=== PATIENT | female | born 1945 | race Caucasian/White ===

== ENCOUNTER 2017-07-01 16:51 | Emergency (ER) | payer MEDICARE, OTHER, SELFPAY ==
[2017-07-01 16:56] VITALS: BP 129/69; PULSE 74; RESP 16; TEMP 36.8; O2SAT 97; BMI 20.9
--- NOTE | 2017-07-01 17:06 | HMH.EDGENADL ---
ED Disposition Clinical Impression: Viral illness Disposition: Home, Self-Care Condition on Discharge: Good Additional Instructions: Tylenol or ibuprofen for aches and pain. Rest and plenty of fluids. Additional instructions for UPPER RESPIRATORY INFECTION: See your physician as soon as possible for further evaluation. Return immediately if you have an uncontrollable fever greater than 104 degrees, difficulty breathing or shortness of breath, persistent vomiting, or inability to swallow. Referrals: Dami Schumacher MD [Primary Care Provider] - - Critical Care Critical Care Time: No Attestation: On , the high probability of a clinically significant, sudden or life threatening deterioration of the following system(s) required my full and direct attention, intervention and personal management. The time I documented below is in addition to time spent performing reported procedures but includes the following listed in this critical care notation. Medical Decision Making Vital Signs: 07/01/17 16:56 Temperature 98.2 F Temperature Source Oral Pulse Rate [Right Radial] 74 Respiratory Rate 16 Blood Pressure [Right Arm] 129/69 Blood Pressure Mean [Right Arm] 89 02 Sat by Pulse Oximetry 97 - Lab Data Lab Results 07/01/17 17:10: Influenza Type A Ag Negative, Influenza Type B Ag Negative Orders (Tests/Meds): ORDERS Category Date Time Status 12-lead EKG Request [ECG Request by /Allison] Stat Y 07/01/17 17:22 Ordered - ECG Data Tracing #1 EKG interpreted by Ashok Rosario MD: Rhythm: sinus Rate: 70 [place]: normal Ectopy: none Conduction: normal ST Segment Changes: none T Wave Changes: none Q Waves: none No evidence of acute ischemia or injury Normal electrocardiogram - Ankit Inquiry Pt receiving controlled substance: No General Adult HPI - General Stated complaint: Body aches, conjestion, mouth blisters - History of Present Illness HPI narrative: The patient says that she felt fine when she woke up this morning and she left the house at one, but sometime thereafter she began feeling generalized body aches particularly her legs and back and a sense of fatigue. She has some painful sores on the roof of her mouth. Denies cough but feels slightly winded. She has chronic rhinorrhea, unchanged today. No vomiting or diarrhea. No chest pain. She says she had the flu April 24, treated with Tamiflu. - Related Data Home Medications Medication Instructions Recorded Confirmed Aspirin [Aspir 81] 81 mg PO HS 03/09/18 03/09/18 Bisoprolol Fumarate [Zebeta 5mg 0 mg PO HS 07/01/17 07/01/17 tablet] Levothyroxine Sodium 50 mcg PO DAILY 07/01/17 07/01/17 [Levothyroxine 25mcg (0.025mg) Tab] PHENobarbital [Phenobarbital] 30 mg PO HS 07/01/17 07/01/17 Phenytoin Sodium Extended 125 mg PO HS 07/01/17 07/01/17 [Dilantin 100mg Capsule] Ubidecarenone [Co Q-10] 100 mg PO DAILY 07/01/17 07/01/17 Allergies Allergy/AdvReac Type Severity Reaction Status Date / Time butorphanol [BUTORPHANOL] Allergy Severe ANAPHALTIC Verified 07/01/17 17:09 SHOCK iopamidol [IOPAMIDOL] Allergy Severe ANAPHYLAXIS Verified 07/01/17 17:09 penicillin V [From PEN-VEE K] Allergy Mild THRUSH Verified 07/01/17 17:09 diphenhydramine Allergy Unknown Verified 07/01/17 17:09 [From BENADRYL] iopanoic acid [IOPANOIC ACID] Allergy Unknown Verified 07/01/17 17:09 [facility] History I have reviewed the patient's past medical history: Yes ROS Obtained: Yes All systems reviewed & no additional complaints - Constitutional Constitutional: Reports body ache, Denies fever(s), Reports malaise - ENT Ears, Nose, Mouth, and Throat: Reports as per HPI - Cardiovascular Cardiovascular: Denies chest pain - Respiratory Respiratory: No cough Physical Exam - General General appearance: alert, in no apparent distress - Head Head exam: atraumatic, normocephalic, normal inspection - Eye Ey
[2017-07-01 17:45] VITALS: BP 129/69; PULSE 74; RESP 16; TEMP 36.8; O2SAT 97
== END 2017-07-01 17:50 | disposition home or self-care (01) ==
PROVIDERS: Emergency Provider Emergency Medicine; PCP Family Medicine
DX: B34.9 Viral infection, unspecified (principal); S00.522A Blister (nonthermal) of oral cavity, initial encounter; Z79.82 Long term (current) use of aspirin; Z88.0 Allergy status to penicillin; Z88.8 Allergy status to other drugs, medicaments and biological substances
CPT/HCPCS: 87275; 87276; 93005; 99282

== ENCOUNTER → 2018-02-10 13:21 | Outpatient (CLI) | payer MEDICARE, OTHER, SELFPAY ==
--- NOTE | 2018-02-10 13:26 | CA_ITS ---
PROCEDURE: 2-D M-mode and color Doppler study INDICATIONS FOR THE TEST: Chest painX COPD Heart Murmur Tobacco Smoking PalpitationsX Fatigue Syncope EdemaX Hypertension Diabetes Mellitus Rheumatic Fever SOBXDOE Obesity Hyperlipidemia Family History HD Additional History AF PATIENT INFORMATION HEIGHT: 63 WEIGHT:121 GENDER: Female B/P:132/66 2-D/M-MODE INTERPRETATION: 2-D MEASUREMENTS OBSERVED VALUES IN CMS Right Ventricular Dimension (RVDd) 1.4 Interventricular Septum (Thickness)(IVsd) .9 Left Ventricular Internal Dimensions(LVIDd) 5.0 Left Ventricular Posterior Wall (Thickness)(LVPWd) .8 Aortic Root 2.9 Aortic Cusp Separation 1.6 Left Atrial Dimensions (LAD) 2.6 2D 1. Left atrium is mildly enlarged, left ventricle is normal size, mild concentric left ventricular hypertrophy, visually estimated ejection fraction 55% with no obvious regional wall motion abnormality. 2. The right atrium and right ventricle are normal size and contractility. 3. The aortic valve is minimally thickened and fibrosed. 4. The mitral and tricuspid valvular grossly normal. 5. The pulmonic valve is poorly visualized. 6. No significant pericardial effusion noted. DOPPLER INTERROGATION: Doppler interrogation of the aortic, mitral and tricuspid valvular presence of mild mitral and tricuspid regurgitation, tricuspid regurgitation jet velocity is inadequate for calculation of the right ventricular systolic pressure, diastolic parameters are inconclusive. CONCLUSION: 1. Normal left ventricular size, preserved left ventricular systolic function, visually estimated ejection fraction 55% with no regional wall motion abnormality, diastolic parameters are inconclusive. 2. Mild mitral and tricuspid regurgitation 3. No significant pericardial effusion noted.
== END ==
PROVIDERS: PCP Family Medicine; Visit Provider Internal Medicine
DX: R00.2 Palpitations (principal)
CPT/HCPCS: 93306

== ENCOUNTER → 2018-03-28 12:38 | Outpatient (POV) | payer MEDICARE, SELFPAY | PROVIDERS: Visit Provider Dermatology | DX: Z00.00 Encounter for general adult medical examination without abnormal findings (principal) ==

== ENCOUNTER → 2018-04-11 09:58 | Outpatient (CLI) | payer MEDICARE, OTHER, SELFPAY ==
--- NOTE | 2018-04-11 10:08 | XR_ITS ---
XR knee LT 3V Ordering Physician: Dami Schumacher MD Patient Age: 73 years: Female HISTORY: ITS.REASON: LEFT KNEE PAIN, TECHNIQUE: 3 view nonweightbearing left knee COMPARISON :None none FINDINGS . Osteophytic changes at the left knee most pronounced at the medial compartment. There is prominent joint space narrowing at the medial compartment. On this nonweightbearing film the medial joint space narrows to less than 1. 5 - 2 mm height. Mild sclerosis about the tibial plateau and medial compartment reflecting reactive bone change. The Tricompartmental marginal osteophytes most pronounced about medial compartment.. The lateral compartment remains well maintained. Faint chondrocalcinosis seen at both the medial and lateral compartment. Most likely on the basis of degenerative change but can be seen with other conditions, including CPPD/ pseudogout . There is a small joint effusionAt suprapatellar bursa seen on lateral view. The patella appears satisfactory on current images. Mild diffuse demineralization. IMPRESSION---- Osteoarthritis left knee most pronounced at the medial compartment . Marked joint space narrowing, with sclerosis and marginal osteophytes most evident at medial compartment. Faint chondrocalcinosis both medial & lateral compartment. More likely degenerative in nature Small joint effusion
[2018-04-11 10:44] LABS: Basophils % 0.7 % (0.1-2.0); Eosinophils # 0.1 K/mm3 (0.0-0.4); Eosinophils % 1.8 % (0.1-12.0); Hematocrit 37.4 % (37.0-47.0); Hemoglobin 12.1 g/dL (12.2-16.2); Lymphocytes # 2.1 K/mm3 (0.7-4.5); Lymphocytes % 32.4 % (10-50); Mean Corpuscular HGB Conc 32.4 g/dL (31.8-35.4); Mean Corpuscular Hemoglobin 30.1 pg (27.0-31.2); Mean Corpuscular Volume 92.9 fl (81-99); Mean Platelet Volume 7.2 fl (7.4-10.4); Monocytes # 0.4 K/mm3 (0.1-1.0); Monocytes % 6.2 % (1.7-9.3); Neutrophils # 3.8 K/mm3 (1.8-7.8); Neutrophils % 58.8 % (37.0-80.0); Platelet Count 274 K/mm3 (142-424); Red Blood Count 4.03 M/mm3 (4.20-5.40); Red Cell Distribution Width 13.4 % (11.5-17.5); White Blood Count 6.4 K/mm3 (4.8-10.8)
[2018-04-11 11:36] LABS: Alanine Aminotransferase 24 U/L (12-78); Albumin/Globulin Ratio 0.9 (1.1-1.8); Alkaline Phosphatase 163 U/L (46-116); Anion Gap 12.9 mEq/L (5-15); Aspartate Amino Transferase 22 U/L (15-37); Bilirubin,Total 0.3 mg/dL (0.2-1.0); Blood Urea Nitrogen 14 mg/dL (7-18); Calcium 9.4 mg/dL (8.5-10.1); Carbon Dioxide 29 mmol/L (21.0-32.0); Chloride 101 mmol/L (98-107); Chol/HDL Ratio 3.5 (1-3.5); Cholesterol 215 mg/dL (140-200); Creatinine,Serum 0.75 mg/dL (0.55-1.02); Estimated Glomerular Filt Rate 75 ml/min (>60); GFR (African American) 91 ML/MIN (>60); Globulin 4.4 gm/dl (1.3-3.2); Glucose 94 mg/dL (74-106); HDL Cholesterol 62 mg/dL (29-89); LDL Cholesterol 137 mg/dL (0-130); Phenytoin (Dilantin) 17.1 ug/mL (10-20); Potassium 4.9 mmoL/L (3.5-5.1); Sodium 138 mmol/L (136-145); Thyroid Stimulating Hormone 1.01 uIU/ml (0.358-3.740); Total Protein,Serum 8.4 gm/dL (6.4-8.2); Triglycerides 80 mg/dL (30-200); VLDL Cholesterol 16 mg/dL (0-40)
== END ==
PROVIDERS: PCP Family Medicine; Visit Provider Family Medicine
DX: E78.5 Hyperlipidemia, unspecified (principal); E03.9 Hypothyroidism, unspecified; G40.909 Epilepsy, unspecified, not intractable, without status epilepticus
CPT/HCPCS: 36415; 73562; 80053; 80061; 80184; 80185; 84443; 85025

== ENCOUNTER → 2019-02-09 11:29 | Outpatient (CLI) | payer MEDICARE, OTHER, SELFPAY ==
--- NOTE | 2019-02-09 11:37 | US_ITS ---
APPROVED REPORT Exam Type: Ankle to Brachial Index Quick Print Operator: RT Kourtney(R) Indications Claudication: Bilaterally Rest Pain: Bilaterally Risk Factors Hypertension Pressures/Indices Right Indices Left Indices Brachial 125.00 mmHg Brachial 132.00 mmHg Low Thigh 138.00 mmHg 1.05 Low Thigh 134.00 mmHg 1.02 Calf 148.00 mmHg 1.12 Calf 135.00 mmHg 1.02 Ankle(PT) 140.00 mmHg 1.06 Ankle(PT) 156.00 mmHg 1.18 Ankle(DP) 147.00 mmHg 1.11 Ankle(DP) 144.00 mmHg 1.09 Digit 116.00 mmHg 0.88 Digit 116.00 mmHg 0.88 Findings RT IHSAN=1.1 LT IHSAN=1.2 RT TBI=0.9 LT TBI=0.9 Normal pulses Normal waveforms Conclusion Normal appearing resting noninvasive lower extremity arterial study. Electronically signed by : Gregory Canchola MD 02/09/2019 15:41:06
== END ==
PROVIDERS: PCP Family Medicine; Visit Provider Physician Assistant
DX: I70.213 Atherosclerosis of native arteries of extremities with intermittent claudication, bilateral legs (principal)
CPT/HCPCS: 93923

== ENCOUNTER → 2019-05-21 18:07 | Outpatient (CLI) | payer MEDICARE, OTHER, SELFPAY ==
--- NOTE | 2019-05-21 18:27 | XR_ITS ---
PROCEDURE: XR KNEE RT 3V CLINICAL INDICATION: ACUTE PAIN OF RIGHT KNEE COMPARISON: [id number] XR knee LT 3V from 04/11/2018 FINDINGS: There are moderate osteoarthritic changes of the right knee involving all 3 compartments most severe at the medial compartment. Chondrocalcinosis is present medially and laterally. There is a small suprapatellar effusion. No obvious fracture or dislocation. IMPRESSION: Moderate osteoarthritis with suprapatellar effusion Dictated by: Gregory Canchola MD 05/21/2019 18:58 Electronically signed by Gregory Canchola MD in [place] 05/21/2019 18:58
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
== END ==
PROVIDERS: PCP Family Medicine; Visit Provider Family Medicine
DX: M25.561 Pain in right knee (principal)
CPT/HCPCS: 73562

== ENCOUNTER → 2021-10-13 09:02 | Outpatient (CLI) | payer MEDICARE, OTHER, SELFPAY ==
--- NOTE | 2021-10-13 09:22 | MM_ITS ---
PROCEDURE INFORMATION: Exam: MG Bilateral Screening 3D Mammography Exam date and time: 10/13/2021 9:30 AM Age: 76 years old Clinical indication: Screening mammogram TECHNIQUE: Imaging protocol: Bilateral Screening tomosynthesis and 2D mammography including computer-aided detection (CAD) when performed. COMPARISON: 1. MG DMSB DIG MAMM-SCREEN [place] W/CAD 03/18/2017 10:56 AM 2. OT MA MAMMO SCRN DIGITL BILAT 03/01/2012 4:49 PM FINDINGS: MAMMOGRAPHY: Breast composition: The breast is heterogeneously dense, which may obscure small masses. Mass: None. Architectural distortion: No new or suspicious architectural distortion. Calcifications: Stable benign-appearing calcifications are present. No new or suspicious cluster of microcalcifications have developed. Asymmetric density: No new or suspicious asymmetric density is present Skin thickening: None. Axillary adenopathy: None. IMPRESSION: No mammographic evidence of malignancy. Recommend annual screening mammography unless otherwise clinically indicated. ASSESSMENT: BI-RADS category 2: Benign
--- NOTE | 2021-10-13 09:23 | XR_ITS ---
FINAL REPORT TECHNIQUE: Bone densitometry calculations of the lumbar spine and left hip were obtained. CLINICAL HISTORY: .post menopausal FINDINGS: DEXA BONE DENSITY AXIAL SKELETON Using L1-4, the bone mineral density of the spine is 0.658 g/cm2, corresponding to T-score of -3.5. Using the left hip, the bone mineral density of the femoral neck is 0.497 g/cm2, corresponding to a T-score of -3.6. NOTE: T-score: Standard deviation compared with peak bone mass of young adult mean. *Following the recommendations of the International Society of Bone Densitometry, classification of hip BMD is based on the lower of two T-scores; total hip or femoral neck. IMPRESSION: Osteoporosis: Lowest T-score is at or below -2.5. This patient's T-score meets the World Health Organization criteria for osteoporosis. Reviewed, Interpreted and Dictated by Dean Ritchie III, MD Transcribed by Marry Barriga Authenticated and [facility]
[2021-10-13 10:04] LABS: Basophils # 0.1 K/mm3 (0-0.2); Basophils % 1.5 % (0.1-2.0); Eosinophils # 0.1 K/mm3 (0.0-0.4); Eosinophils % 2.3 % (0.1-12.0); Hematocrit 37.7 % (37.0-47.0); Hemoglobin 12.3 g/dL (12.2-16.2); Lymphocytes % 35.5 % (10-50); Mean Corpuscular HGB Conc 32.8 g/dL (31.8-35.4); Mean Corpuscular Volume 94.6 fl (81-99); Mean Platelet Volume 7.3 fl (7.4-10.4); Monocytes # 0.4 K/mm3 (0.1-1.0); Monocytes % 6.9 % (1.7-9.3); Neutrophils % 53.8 % (37.0-80.0); Platelet Count 316 K/mm3 (142-424); Red Blood Count 3.98 M/mm3 (4.20-5.40); Red Cell Distribution Width 13.5 % (11.5-17.5); White Blood Count 5.5 K/mm3 (4.8-10.8)
[2021-10-13 11:19] LABS: Alanine Aminotransferase 17 U/L (12-78); Albumin Level 4.2 g/dl (3.5-5.0); Albumin/Globulin Ratio 1.2 (1.1-1.8); Alkaline Phosphatase 125 U/L (38-126); Anion Gap 12.6 mEq/L (5-15); Aspartate Amino Transferase 34 U/L (14-36); Blood Urea Nitrogen 15 mg/dl (7-17); Calcium 9.4 mg/dl (8.4-10.2); Carbon Dioxide 27 mmol/L (22.0-30.0); Chloride 100 mmol/L (98-107); Estimated Glomerular Filt Rate 97 ml/min (>60); GFR (African American) 117 ML/MIN (>60); Globulin 3.6 g/dL (1.3-3.2); Glucose 90 mg/dl (74-100); Potassium 4.6 mmoL/L (3.5-5.1); Sodium 135 mmol/L (136-145); Total Protein,Serum 7.8 g/dl (6.3-8.2)
[2021-10-13 11:24] LABS: Bilirubin,Total < 0.1 mg/dl (0.2-1.3)
[2021-10-13 11:48] LABS: Thyroid Stimulating Hormone 1.89 uIU/mL (0.465-4.68)
== END ==
PROVIDERS: PCP Family Medicine; Visit Provider Family Medicine
DX: Z12.31 Encounter for screening mammogram for malignant neoplasm of breast (principal); Z78.0 Asymptomatic menopausal state; G40.909 Epilepsy, unspecified, not intractable, without status epilepticus; E03.9 Hypothyroidism, unspecified; I47.1 Supraventricular tachycardia
CPT/HCPCS: 36415; 77063; 77067; 77080; 80053; 84443; 85025

== ENCOUNTER 2021-12-30 14:42 | Emergency (ER) | payer MEDICARE, OTHER, SELFPAY ==
[2021-12-30 15:25] VITALS: BP 133/76; PULSE 86; RESP 17; TEMP 37.1; O2SAT 97; BMI 19.7
--- NOTE | 2021-12-30 15:57 | EXP.UTC ---
Discharge Plan Disposition Patient Disposition: Home, Self-Care Condition: Good Prescriptions Prescriptions: No Action bisoprolol fumarate 5 mg tablet 5 mg PO HS Qty: 90 3RF vitamin B complex tablet 1 tab PO DAILY aspirin 81 MG tablet,delayed release (DR/EC) 81 mg PO HS levothyroxine 25 MCG tablet 50 mcg PO DAILY phenobarbital 15 MG tablet 30 mg PO HS phenytoin sodium extended 100 mg capsule 50 mg PO HS Referrals Follow up/Referrals: Dami Schumacher MD [Primary Care Provider] - See instructions Activity Restrictions/Add. Instructions Additional Instructions/Restrictions: *Monitor Temp, Over the counter Motrin or Tylenol as directed/as needed Tylenol every 4 hours and Motrin every 6 hours (as long as your family doctor has told you that you can take it) for fever or pain. and straight to ER if unable to lower temp less than 101.0 after medication given *Warm salt water gargles may help to soothe the throat *Throat Lozenges? *Warm fluids like tea with honey may help to soothe the throat? *Sleep elevated *Humidifier/Vaporizer Follow up IMMEDIATELY for new or worsening symptoms or no Noticeable improvement over the next 48-72 hours. 911 for difficulty breathing or swallowing You were tested for today for COVID19 your test result should be back in the next 24-48 hours, you check your results on the [facility] My Health Portal Make sure to take your Vitamins Vit. C Vit D and Zinc if you can take them Clinical Impressions Clinical Impression: Encounter for laboratory testing for COVID-19 virus Instructions Patient Instructions: Coronavirus Disease 2019, DI for Fever (Symptom) -- Adult Discharge ED Provider: Sobia Melton [facility] [place] HPI General Stated complaint: headache,achey Mode of Arrival: Ambulatory Source of Information: Patient Limitations: No Limitations Time Seen by Provider: 12/30/21 15:57 Description of Symptoms (Recalled from Triage Doc. by RN): PATIENT C/O NAUSEA, WEAKNESS, AND COUGH SINCE THIS MORNING HEENT Symptoms (Recalled from RN notes): No Resp Symptoms (Recalled from RN notes): No Skin Symptoms (Recalled from RN notes): No MS Symptoms (Recalled from RN notes): No Functional Status (Recalled from RN notes): WNL History of Present Illness Provider Complaint: Patient states that she woke up this morning not feeling well States that she is having body aches, feeling tired and cough States that she was worried that she may have COVID and wanted to get tested States that her has surgery on Tuesday and she wanted to make sure she was ok to be around him so she came in to get tested Related Data Home Medications Medication Instructions Recorded Confirmed aspirin 81 mg tablet,delayed 81 mg PO HS Heartburn 07/01/17 02/03/21 release levothyroxine 25 mcg tablet 50 mcg PO DAILY thyroid 07/01/17 02/03/21 phenobarbital 15 mg tablet 30 mg PO HS seizures 07/01/17 02/03/21 vitamin B complex 1 tab PO DAILY 02/07/18 02/03/21 phenytoin sodium extended 100 mg 50 mg PO HS epilepsy 02/05/20 02/03/21 capsule Previous Rx's Medication Instructions Recorded bisoprolol fumarate 5 mg tablet 5 mg PO HS blood pressre #90 tabs 02/03/21 Allergies Allergy/AdvReac Type Severity Reaction Status Date / Time butorphanol [BUTORPHANOL] Allergy Severe ANAPHALTIC Verified 02/03/21 09:12 SHOCK iopamidol [IOPAMIDOL] Allergy Severe ANAPHYLAXIS Verified 02/03/21 09:12 penicillin V [From PEN-VEE K] Allergy Mild THRUSH Verified 02/03/21 09:12 diphenhydramine Allergy Unknown Verified 02/03/21 09:12 [From BENADRYL] iopanoic acid [IOPANOIC ACID] Allergy Unknown Verified 02/03/21 09:12 Worker's Comp Is this a Worker's Comp case?: No PFSH [facility] Medical History (Updated 12/30/21 @ 16:05 by Sobia Melton APRN) Depression Edema Mitral valve disorder PAF (paroxysmal atrial fibrillation) Palpitations Seizure disorder SOB (shortness of
[2021-12-30 16:10] VITALS: BP 133/76; PULSE 86; RESP 17; TEMP 37.1; O2SAT 97
== END 2021-12-30 16:13 | disposition home or self-care (01) ==
PROVIDERS: Emergency Provider Nurse Practitioner; PCP Family Medicine
DX: Z20.822 Contact with and (suspected) exposure to COVID-19 (principal); R51.9 Headache, unspecified; R52 Pain, unspecified
CPT/HCPCS: 99212; C9803; G0463; U0003; U0005

== ENCOUNTER → 2022-01-28 14:07 | Outpatient (CLI) | payer MEDICARE, OTHER, SELFPAY ==
[2022-01-28 14:17] LABS: Adenovirus F 40/41, stool Not Detected (NotDetected); Astrovirus Not Detected (NotDetected); Campylobacter Not Detected (NotDetected); Clostridium Difficile A/B, PCR Not Detected (NotDetected); Cryptosporidium Not Detected (NotDetected); Cyclospora Cayetanesis Not Detected (NotDetected); Entamoeba histolytica Not Detected (NotDetected); Enteroaggregative E coli Not Detected (NotDetected); Enterotoxigenic E coli Not Detected (NotDetected); Giardia lamblia Not Detected (NotDetected); Norovirus Not Detected (NotDetected); Plesimonas Shigalloides, PCR Not Detected (NotDetected); Rotavirus A Not Detected (NotDetected); Salmonella, PCR Not Detected (NotDetected); Sapovirus Not Detected (NotDetected); Shiga-like toxin E coli Not Detected (NotDetected); Shigella Enterovasive E coli Not Detected (NotDetected); Vibrio Cholerae Not Detected (NotDetected); Vibrio, PCR Not Detected (NotDetected); Yersinia Entercolitica, PCR Not Detected (NotDetected)
[2022-01-28 21:13] LABS: Enteropathogenic E coli Detected (NotDetected)
== END ==
PROVIDERS: PCP Nurse Practitioner Family; Visit Provider Nurse Practitioner Family
DX: R19.7 Diarrhea, unspecified (principal); A04.0 Enteropathogenic Escherichia coli infection
CPT/HCPCS: 87506

== ENCOUNTER 2022-09-27 12:08 | Emergency (ER) | payer MEDICARE, OTHER, SELFPAY ==
--- NOTE | 2022-09-27 12:10 | XR_ITS ---
FINAL REPORT CLINICAL HISTORY: fall 5 days ago, swelling of the ankle FINDINGS: AP, oblique and lateral views of the left foot were obtained. There is no prior exam for comparison. There is no acute fracture or dislocation. Bones are osteopenic. There is multi joint degenerative disease. Soft tissues are without acute abnormality. IMPRESSION: No acute osseous abnormality of the left foot. Reviewed, Interpreted and Dictated by Lexy Parker MD Transcribed by Kanwal Billingsley Authenticated and [facility]
--- NOTE | 2022-09-27 12:30 | XR_ITS ---
FINAL REPORT CLINICAL HISTORY: fall 5 days ago, swelling of the ankle FINDINGS: AP, oblique, and lateral views of the left ankle were obtained. There is no prior exam for comparison. Bones are osteopenic. There is multi joint degenerative disease. There is subtle lucency through the lateral talus and through the tip of the lateral malleolus. Nondisplaced fracture not excluded. Lateral soft tissue edema is seen. IMPRESSION: Subtle lucency through the lateral talus and tip of the lateral malleolus. Nondisplaced fracture not excluded. Reviewed, Interpreted and Dictated by Lexy Parker MD Transcribed by Kanwal Billingsley Authenticated and [facility]
[2022-09-27 12:40] VITALS: BP 124/67; PULSE 76; RESP 18; TEMP 36.8; O2SAT 97; BMI 18.9
--- NOTE | 2022-09-27 12:57 | EXP.UTC ---
Discharge Plan Disposition Patient Disposition: Home, Self-Care Condition: Good Prescriptions Prescriptions: No Action bisoprolol fumarate 5 mg tablet 5 mg PO HS Qty: 90 3RF vitamin B complex tablet 1 tab PO DAILY aspirin 81 MG tablet,delayed release (DR/EC) 81 mg PO HS levothyroxine 25 MCG tablet 50 mcg PO DAILY phenobarbital 15 MG tablet 30 mg PO HS phenytoin sodium extended 100 mg capsule 50 mg PO HS Referrals Follow up/Referrals: Dami Schumacher MD [Primary Care Provider] - See instructions Cynthia Dubose DPM [Staff Physician] - 10/12/22 10:00 am (arrive 30min early for xrays) Activity Restrictions/Add. Instructions Additional Instructions/Restrictions: *Use walking boot and walker to get around *RICE, Rest the extremity, Ice 15-20 minutes 3-4 times daily, Compress- wear the leif wrap as discussed as much as possible to help reduce swelling and pain, Elevate the extremity when at rest *Walking boot is for support and help control swelling, use it except in the shower. and use walker to get around Be sure that is not to tight but not to loose either *Elevate when resting? *Ibuprofen 600-800mg every 6-8 hours as needed for pain an inflammation if you can take it. If need something more can take Tylenol in between doses of Ibuprofen to help Immediately follow up with your family doctor for new or worsening of symptoms, or no noticeable improvement over the next 3-5 days Follow up with Dr Dubose on October 12 at 10am as scheduled Clinical Impressions Clinical Impression: Ankle injury Instructions Patient Instructions: How to Choose and Use a Walker, Ankle Fracture, DI for Ankle Fracture, How to Use a Walking Boot Discharge ED Provider: Sobia Melton [facility] HPI General Stated complaint: Fall 09/21 LT foot pain Mode of Arrival: Ambulatory Source of Information: Patient Limitations: No Limitations Time Seen by Provider: 09/27/22 12:57 Description of Symptoms (Recalled from Triage Doc. by RN): PATIENT C/O SWELLING AND PAIN TO LEFT ANKLE. SHE REPORTS FALLING AND INJURING IT ON 09/21/22 HEENT Symptoms (Recalled from RN notes): No Resp Symptoms (Recalled from RN notes): No Skin Symptoms (Recalled from RN notes): No MS Symptoms (Recalled from RN notes): Yes Functional Status (Recalled from RN notes): WNL History of Present Illness Provider Complaint: Patient states that she slipped and fell in parking lot last week and has been having pain and swelling in her left ankle and foot ever since States that hurts at times with walking on it and today when she was still having swelling family had her come in Denies any other injury Related Data Home Medications Medication Instructions Recorded Confirmed aspirin 81 mg tablet,delayed 81 mg PO HS Heartburn 07/01/17 06/09/22 release levothyroxine 25 mcg tablet 50 mcg PO DAILY thyroid 07/01/17 06/09/22 phenobarbital 15 mg tablet 30 mg PO HS seizures 07/01/17 06/09/22 vitamin B complex 1 tab PO DAILY 02/07/18 06/09/22 phenytoin sodium extended 100 mg 50 mg PO HS epilepsy 02/05/20 06/09/22 capsule Previous Rx's Medication Instructions Recorded bisoprolol fumarate 5 mg tablet 5 mg PO HS blood pressre #90 tabs 06/09/22 Allergies Allergy/AdvReac Type Severity Reaction Status Date / Time butorphanol [BUTORPHANOL] Allergy Severe ANAPHALTIC Verified 06/09/22 13:08 SHOCK iopamidol [IOPAMIDOL] Allergy Severe ANAPHYLAXIS Verified 06/09/22 13:08 penicillin V [From PEN-VEE K] Allergy Mild THRUSH Verified 06/09/22 13:08 diphenhydramine Allergy Unknown Verified 06/09/22 13:08 [From BENADRYL] iopanoic acid [IOPANOIC ACID] Allergy Unknown Verified 06/09/22 13:08 Worker's Comp Is this a Worker's Comp case?: No [facility] Disclaimer: The information contained in this section may have been updated after the patient was seen, as this information can be updated by other users. Medical History (Updated 09/27/22 @
[2022-09-27 14:59] VITALS: BP 124/67; PULSE 76; RESP 18; TEMP 36.8; O2SAT 97
== END 2022-09-27 15:10 | disposition home or self-care (01) ==
PROVIDERS: Emergency Provider Nurse Practitioner; PCP Family Medicine
DX: S99.912A Unspecified injury of left ankle, initial encounter (principal); E03.9 Hypothyroidism, unspecified; F32.A Depression, unspecified; G40.909 Epilepsy, unspecified, not intractable, without status epilepticus; W19.XXXA Unspecified fall, initial encounter
CPT/HCPCS: 73610; 73630; 99212; 99214; G0463

== ENCOUNTER 2023-03-10 19:38 | Emergency (ER) | payer MEDICARE, OTHER, SELFPAY ==
[2023-03-10] VITALS (11 sets, daily range): BP systolic 121–136; BP diastolic 63–90; PULSE 78–188; RESP 12–22; TEMP 36.4–36.6; O2SAT 98–100; BMI 20.7
--- NOTE | 2023-03-10 19:44 | ECG_ITS ---
APPROVED REPORT Exam: Resting ECG HR:179 bpm ECG Measurements Heart Rate 179 AXES QRSd 95 QRS 26 QT 256 T 71 QTc 351 Conclusion SUPRAVENTRICULAR TACHYCARDIA INCOMPLETE RIGHT BUNDLE BRANCH BLOCK [90+ ms QRS DURATION, TERMINAL R IN V1/V2, 40+ ms S IN I/aVL/V4/V5/V6] ST DEPRESSION, CONSIDER SUBENDOCARDIAL INJURY [0.1+ mV ST DEPRESSION] CRITICAL TEST RESULT UNCONFIRMED REPORT Electronically signed by : Samuel Magdaleno MD 03/11/2023 16:09:55
--- NOTE | 2023-03-10 19:50 | PC.NURSE ---
Md at bedside attempting Vagel Maneuver, unsuccessful.
--- NOTE | 2023-03-10 19:55 | HMH.EDGENADL ---
Discharge Plan Disposition Patient Disposition: Home, Self-Care Chief Complaint: Arrhythmia/Palpitations Prescriptions Prescriptions: No Action bisoprolol fumarate 5 mg tablet 5 mg PO HS Qty: 90 3RF vitamin B complex tablet 1 tab PO DAILY aspirin 81 MG tablet,delayed release (DR/EC) 81 mg PO HS levothyroxine 25 MCG tablet 50 mcg PO DAILY phenobarbital 15 MG tablet 30 mg PO HS phenytoin sodium extended 100 mg capsule 50 mg PO HS Referrals Follow up/Referrals: Provider,Referral, MD [Primary Care Provider] - See instructions Activity Restrictions/Add. Instructions Additional Instructions/Restrictions: At this time is felt you are safe to be discharged home. If new or worsening symptoms please do not hesitate to return the emergency department. Please follow-up with cardiology Dr. Dobson's office tomorrow at 10 AM. Remind them to adjust your bisoprolol as they see fit. Clinical Impressions Clinical Impression: Sustained SVT Discharge ED Provider: Thanh Liu General Adult HPI General Chief complaint: Arrhythmia/Palpitations Stated complaint: Chest pain Time Seen by Provider: 03/10/23 19:40 History of Present Illness HPI narrative: Patient is a 78-year-old female with past medical history of previous paroxysmal atrial fibrillation, previous chest pain, hyperlipidemia who presents emergency department for evaluation of shortness of breath. Onset was acute, occurring at approximately 7 PM this evening. No chest pain. No other acute complaints at this time. Related Data Home Medications Medication Instructions Recorded Confirmed aspirin 81 mg tablet,delayed 81 mg PO HS Heartburn 07/01/17 06/09/22 release levothyroxine 25 mcg tablet 50 mcg PO DAILY thyroid 07/01/17 06/09/22 phenobarbital 15 mg tablet 30 mg PO HS seizures 07/01/17 06/09/22 vitamin B complex 1 tab PO DAILY 02/07/18 06/09/22 phenytoin sodium extended 100 mg 50 mg PO HS epilepsy 02/05/20 06/09/22 capsule Previous Rx's Medication Instructions Recorded bisoprolol fumarate 5 mg tablet 5 mg PO HS blood pressre #90 tabs 06/09/22 Allergies Allergy/AdvReac Type Severity Reaction Status Date / Time butorphanol [BUTORPHANOL] Allergy Severe ANAPHALTIC Verified 06/09/22 13:08 SHOCK iopamidol [IOPAMIDOL] Allergy Severe ANAPHYLAXIS Verified 06/09/22 13:08 penicillin V [From PEN-VEE K] Allergy Mild THRUSH Verified 06/09/22 13:08 diphenhydramine Allergy Unknown Verified 06/09/22 13:08 [From BENADRYL] iopanoic acid [IOPANOIC ACID] Allergy Unknown Verified 06/09/22 13:08 [facility] Disclaimer: The information contained in this section may have been updated after the patient was seen, as this information can be updated by other users. Medical History (Updated 03/10/23 @ 22:46 by Thanh Liu MD) Chest pain Depression Dyspnea Edema Mitral valve disorder PAF (paroxysmal atrial fibrillation) Palpitations Seizure disorder SOB (shortness of breath) Thyroid disease Social History Smoking Status: Never smoker second hand exposure: No alcohol intake: never substance use type: denies use current occupational status: retired Travel in the last 8 weeks: Inside the [place] ROS Obtained: Yes Systems reviewed as appropriate & no additional complaints except as documented Physical Exam General General appearance: alert and in no apparent distress Head Head exam: atraumatic and normocephalic Eye Eye exam: Present PERRL and EOMI ENT ENT exam: Present mucous membranes moist Neck Neck exam: Present normal inspection Chest Chest inspection: Present normal inspection and symmetric chest wall rise Respiratory Respiratory exam: Present normal lung sounds bilaterally; Absent respiratory distress Cardiovascular Cardiovascular exam: Present normal rhythm and tachycardia Abdominal Exam Abdominal exam: Present so
--- NOTE | 2023-03-10 19:56 | XR_ITS ---
PROCEDURE INFORMATION: Exam: XR Chest Exam date and time: 03/10/2023 8:01 PM Age: 78 years old Clinical indication: Cardiovascular condition or disease; Other: Svt TECHNIQUE: Imaging protocol: Radiologic exam of the chest. Views: 1 view. COMPARISON: CR CXR CHEST(2 VIEWS-NOT PORTABLE) 05/16/2016 10:38 AM FINDINGS: Lungs: Left lower lobe calcified granuloma. The lungs are otherwise clear. The lungs are hyperinflated suggesting COPD. Pleural spaces: Normal No pleural effusion. No pneumothorax. Heart/Mediastinum: Normal. No cardiomegaly. Vasculature: Tortuous atherosclerotic thoracic aorta. Bones/joints: Unremarkable. IMPRESSION: No acute findings.
--- NOTE | 2023-03-10 20:02 | PC.NURSE ---
Pt on Zolls monitor, conitnues to be SVT Heart rate in the 170's, denies CP, reports some nausea and some Shortness of air., preparing for adenosine admin. Md at bedside
--- NOTE | 2023-03-10 20:07 | ECG_ITS ---
APPROVED REPORT Exam: Resting ECG HR:86 bpm ECG Measurements Heart Rate 86 AXES ND 151 P 92 QRSd 86 QRS 47 QT 354 T 58 QTc 397 Conclusion SINUS RHYTHM NORMAL ECG UNCONFIRMED REPORT Electronically signed by : Samuel Magdaleno MD 03/11/2023 16:09:48
--- NOTE | 2023-03-10 20:08 | PC.NURSE ---
Adenosine admin complete pt converted to sinus, denies any symptoms or CP, Updated on POC.
[2023-03-10 20:09] LABS: Basophils # 0.1 K/mm3 (0-0.2); Basophils % 0.5 % (0.1-2.0); Eosinophils # 0.2 K/mm3 (0.0-0.4); Eosinophils % 2.3 % (0.1-12.0); Hematocrit 37.5 % (37.0-47.0); Hemoglobin 12.6 g/dL (12.2-16.2); Lymphocytes # 3.4 K/mm3 (0.7-4.5); Lymphocytes % 34.6 % (10-50); Mean Corpuscular HGB Conc 33.5 g/dL (31.8-35.4); Mean Corpuscular Volume 89.6 fl (81-99); Mean Platelet Volume 7.9 fl (7.4-10.4); Monocytes # 0.7 K/mm3 (0.1-1.0); Monocytes % 7.4 % (1.7-9.3); Neutrophils # 5.5 K/mm3 (1.8-7.8); Neutrophils % 55.1 % (37.0-80.0); Platelet Count 410 K/mm3 (142-424); Red Blood Count 4.18 M/mm3 (4.20-5.40); Red Cell Distribution Width 13.8 % (11.5-17.5); White Blood Count 9.9 K/mm3 (4.8-10.8)
[2023-03-10 20:14] LABS: Chloride 98 mmol/L (98-107)
[2023-03-10 20:15] LABS: Sodium 133 mmol/L (136-145)
[2023-03-10 20:17] LABS: Alanine Aminotransferase 30 U/L (12-78); Alkaline Phosphatase 175 U/L (38-126); Aspartate Amino Transferase 56 U/L (14-36); Bilirubin,Total 0.2 mg/dl (0.2-1.3); Blood Urea Nitrogen 12 mg/dl (7-17); Creatinine Clearance Estimated 35 mL/min (50-200); Estimated Glomerular Filt Rate 81 ml/min (>60); GFR (African American) 97 ML/MIN (>60)
[2023-03-10 20:18] LABS: Albumin Level 4.9 g/dl (3.5-5.0); Albumin/Globulin Ratio 1.1 (1.1-1.8); Calcium 9.2 mg/dl (8.4-10.2); Carbon Dioxide 25 mmol/L (22.0-30.0); Globulin 4.3 g/dL (1.3-3.2); Glucose 151 mg/dl (74-100); Magnesium 1.8 mg/dl (1.6-2.3); Total Protein,Serum 9.2 g/dl (6.3-8.2)
[2023-03-10 20:36] LABS: Free T4 (Free Thyroxine) 1.25 ng/dl (0.78-2.19)
[2023-03-10 20:49] LABS: Thyroid Stimulating Hormone 1.04 uIU/mL (0.465-4.68)
--- NOTE | 2023-03-10 22:31 | PC.NURSE ---
Pt resting in bed, snack given, continues in SR, denies CP, SOA, or N/V. Updated on POC by
== END 2023-03-10 23:10 | disposition home or self-care (01) ==
PROVIDERS: Emergency Provider Emergency Medicine
DX: I47.10 Supraventricular tachycardia, unspecified (principal); R07.9 Chest pain, unspecified; R06.02 Shortness of breath; E78.5 Hyperlipidemia, unspecified; E03.9 Hypothyroidism, unspecified; G40.909 Epilepsy, unspecified, not intractable, without status epilepticus
CPT/HCPCS: 71045; 80053; 83735; 84439; 84443; 85025; 93005; 96361; 96374; 99291

== ENCOUNTER → 2023-03-11 11:34 | Outpatient (CLI) | payer MEDICARE, OTHER, SELFPAY | PROVIDERS: PCP Family Medicine; Visit Provider Physician Assistant | DX: I47.10 Supraventricular tachycardia, unspecified (principal); R06.00 Dyspnea, unspecified; R00.2 Palpitations; R60.9 Edema, unspecified | CPT/HCPCS: 93225 ==

== ENCOUNTER → 2023-03-14 12:11 | Outpatient (CLI) | payer MEDICARE, OTHER, SELFPAY | PROVIDERS: PCP Family Medicine; Visit Provider Physician Assistant | DX: R06.00 Dyspnea, unspecified (principal); R07.9 Chest pain, unspecified; R00.2 Palpitations | CPT/HCPCS: 93270 ==

== ENCOUNTER 2023-11-25 15:33 | Emergency (ER) | payer MEDICARE, OTHER, SELFPAY ==
[2023-11-25 15:34] VITALS: BP 130/78; PULSE 83; RESP 18; TEMP 37.1; O2SAT 97; BMI 18.0
--- NOTE | 2023-11-25 15:44 | ECG_ITS ---
APPROVED REPORT Exam: Resting ECG HR:69 bpm ECG Measurements Heart Rate 69 AXES KS 167 P 91 QRSd 93 QRS 20 QT 411 T 58 QTc 430 Conclusion SINUS RHYTHM NORMAL ECG UNCONFIRMED REPOR Electronically signed by : JOVANY FAM, 11/25/2023 21:19:41
[2023-11-25 15:46] VITALS: BMI 19.8
--- NOTE | 2023-11-25 15:47 | PC.NURSE ---
Dr. Herzog at [facility] for pt eval
--- NOTE | 2023-11-25 15:50 | PC.NURSE ---
DR FAM AT BEDSIDE
[2023-11-25 15:52] VITALS: BP 114/76; BP 115/64; BP 123/65; PULSE 70; PULSE 72; PULSE 75
--- NOTE | 2023-11-25 15:53 | CT_ITS ---
PROCEDURE INFORMATION: Exam: CT Head Without Contrast Exam date and time: 11/25/2023 4:30 PM Age: 78 years old Clinical indication: Pain; Dizziness; Headache; Additional info: Headache, dizziness TECHNIQUE: Imaging protocol: Computed tomography of the head without contrast. Radiation optimization: All CT scans at this facility use at least one of these dose optimization techniques: automated exposure control; mA and/or kV adjustment per patient size (includes targeted exams where dose is matched to clinical indication); or iterative reconstruction. COMPARISON: No relevant prior studies available. FINDINGS: Brain: Moderate generalized cerebral atrophy. No intracranial mass, hemorrhage or evidence of acute ischemia. Cerebral ventricles: No ventriculomegaly. Paranasal sinuses: Visualized sinuses are unremarkable. No fluid levels. Mastoid air cells: Visualized mastoid air cells are well aerated. Bones: Unremarkable. No acute fracture. Soft tissues: Unremarkable. IMPRESSION: No acute intracranial abnormality
--- NOTE | 2023-11-25 15:53 | XR_ITS ---
PROCEDURE INFORMATION: Exam: XR Chest Exam date and time: 11/25/2023 4:26 PM Age: 78 years old Clinical indication: Other: Weakness, dizzy TECHNIQUE: Imaging protocol: Radiologic exam of the chest. Views: 1 view. COMPARISON: CR XR CHEST PORTABLE 03/10/2023 8:01 PM FINDINGS: Lungs: Mild patchy parenchymal opacity in the bilateral lower lungs. Upper lungs appear clear. Pleural spaces: Unremarkable. No pleural effusion. No pneumothorax. Heart/Mediastinum: Unremarkable. No cardiomegaly. Bones/joints: Bones are diffusely osteopenic. Slight scoliosis and mild degenerative changes of the spine noted. IMPRESSION: Mild bilateral lower lobe infiltrate versus atelectasis
--- NOTE | 2023-11-25 15:54 | HMH.EDGENADL ---
Discharge Plan Disposition Patient Disposition: Home, Self-Care Condition: Good Prescriptions Prescriptions: New cefdinir 300 mg capsule 300 mg PO BID 10 Days Qty: 20 0RF No Action levothyroxine [Synthroid] 50 mcg tablet 50 mcg PO DAILY bisoprolol fumarate 5 mg tablet 5 mg PO HS Qty: 90 1RF aspirin 81 MG tablet,delayed release (DR/EC) 81 mg PO HS phenobarbital 15 mg tablet 45 mg PO HS phenytoin sodium extended 100 mg capsule 100 mg PO HS Referrals Follow up/Referrals: Dami Schumacher MD [Primary Care Provider] - See instructions Activity Restrictions/Add. Instructions Additional Instructions/Restrictions: Please merchandise pickup/receiving associate your prescription for antibiotic and take the full course as prescribed. Make sure that you to stay hydrated. Follow-up closely with your primary care provider. Return to the emergency department for new or worsening symptoms. Clinical Impressions Clinical Impression: Nausea, UTI (urinary tract infection) Instructions Patient Instructions: DI for Urinary Tract Infection (UTI), DI for Nausea -- Adult, DI for Headache Print Language Print Language: [place] Discharge ED Provider: Julia Herzog General Adult HPI General Chief complaint: Nausea/Vomiting/Diarrhea Stated complaint: low bp, dizzy, nauseous Time Seen by Provider: 11/25/23 15:37 Mode of Arrival: Ambulatory Source of Information: Patient Limitations: No Limitations Description of Symptoms (Recalled from ER Triage Doc. by RN): PT REPORTS NAUSEA, DIZZINESS, HEADAHCE AND SHORTNESS OF BREATH History of Present Illness HPI narrative: This patient is an 78-year-old female with a history of seizure disorder on phenytoin and phenobarbital, hypothyroidism on levothyroxine, and hypertension on bisoprolol presenting to the emergency department for evaluation. She reports that for the last several months, she has had intermittent episodes of lightheadedness. She also has a number of other symptoms that have been intermittent as well, including mild headache, mild shortness of breath, nausea. She states she is under a great deal of stress as her recently went into a nursing facility and is up to her to take care of their large property. She also states they recently changed her seizure medications not long ago. She states that today, she was having a mild headache and nausea, and she checked her blood pressure at [facility] and the top number was 105. She thought that it may be something that she ate in town, as she had a burger and a Coke and thinks that she had real sugar instead of Splenda. They asked the pharmacist there, and the pharmacist said that she should go to the emergency department to get checked out with her symptoms and low blood pressure. She currently states that she is feeling better. She has a mild headache at this time, but the nausea is going away. No other concerns or complaints, such as acute visual changes, new numbness or tingling, new unilateral weakness, or other concerns. She notes a whole host of other concerns, including poor circulation that she states she has been worked up for in the past, which causes her feet to always stay cold, and she states she needs to get her eyes checked. Related Data Home Medications ?Medication ?Instructions ?Recorded ?Confirmed aspirin 81 mg tablet,delayed 81 mg PO HS Heartburn 07/01/17 03/11/23 release levothyroxine 50 mcg tablet 50 mcg PO DAILY 03/11/23 03/11/23 (Synthroid) phenobarbital 15 mg tablet 45 mg PO HS seizures 03/11/23 03/11/23 phenytoin sodium extended 100 mg 100 mg PO HS epilepsy 03/11/23 03/11/23 capsule Previous Rx's ?Medication ?Instructions ?Recorded bisoprolol fumarate 5 mg tablet 5 mg PO HS blood pressre #90 tabs 08/05/23 cefdinir 300 mg capsule 300 mg PO BID 10 days #20 caps 11/25/23 Allergies Allergy/AdvReac Type Severity Reaction Status Date / Time butorphanol [BUTORPHANOL] Allergy Severe ANAPHALTIC Verified 03/11/23 10:09 SHOCK iopamidol [IOPAMIDOL] Allergy Severe ANAPHYLAXIS Verified 03/11/23 10:09 penicillin V [From PEN-VEE K] Allergy Mild THRUSH Verified 03/11/23 10:09 diphenhydramine Allergy Unknown Verified 03/11/23 10:09 [From BENADRYL] iopanoic acid [IOPANOIC ACID] Allergy Unknown Verified 03/11/23 10:09 [facility] Disclaimer: The information contained in this section may have been updated after the patient was seen, as this information can be updated by other users. Medical History Claudication Dyspnea Chest pain Seizure disorder Thyroid disease Depression SOB (shortness of breath) Mitral valve disorder Edema Palpitations PAF (paroxysmal atrial fibrillation) Social History Smoking Status: Never smoker second hand exposure: No alcohol intake: never substance use type: denies use current occupational status: retired Travel in the last 8 weeks: Inside the [place] ROS Obtained: Yes All systems reviewed & no additional complaints except as documented Physical Exam General General appearance: alert and in no apparent distress Head Head exam: atraumatic and normocephalic Eye Eye exam: Present normal appearance, PERRL and EOMI ENT ENT exam: Present normal exam, normal oropharynx, mucous membranes moist and normal external ear exam Neck Neck exam: Present normal inspection, full ROM and trachea midline; Absent tenderness Chest Chest inspection: Present normal inspection and symmetric chest wall rise; Absent tenderness Respiratory Respiratory exam: Present normal lung sounds bilaterally; Absent respiratory distress, wheezes, stridor or accessory muscle use Cardiovascular Cardiovascular exam: Present regular rate and normal rhythm Abdominal Exam Abdominal exam: Present soft; Absent distention, tenderness or guarding Extremities Exam Extremities exam: Present normal inspection, full ROM and normal capillary refill; Absent tenderness or edema Back Exam Back exam: Present normal inspection and full ROM; Absent tenderness Neurological Exam Neurological exam: Present alert, oriented X3, CN II-XII intact and normal gait; Absent motor sensory deficit Psychiatric Psychiatric exam: Present normal affect and normal mood Skin Skin exam: Present warm and dry Medical Decision Making Medical Records Medical records reviewed: Yes I reviewed the patient's medical records. Ankit Inquiry Pt receiving controlled substance: No Vital Signs: 11/25/23 15:34 11/25/23 15:52 11/25/23 15:59 Temperature 98.8 F Temperature Source Oral Pulse Rate 71 Pulse Rate [Apical] 83 Pulse Rate [Orthostatic Lying Left] 70 Pulse Rate [Orthostatic Sitting Left] 75 Pulse Rate [Orthostatic Standing Left] 72 Respiratory Rate 18 Blood Pressure 114/76 Blood Pressure [Orthostatic Lying Right Arm] 115/64 Blood Pressure [Orthostatic Sitting Right Arm] 114/76 Blood Pressure [Orthostatic Standing Right Arm] 123/65 Blood Pressure [Right Arm] 130/78 Blood Pressure Mean [Right Arm] 95 Blood Pressure Source Blood Pressure Source [Right Arm] Automatic Cuff Blood Pressure Position Blood Pressure Position [Right Arm] Sitting 02 Sat by Pulse Oximetry 97 98 Oxygen Delivery Method Room Air Room Air 11/25/23 17:00 08/02/24 17:30 11/25/23 17:48 Temperature 97.9 F Temperature Source Oral Pulse Rate 72 73 73 Pulse Rate [Apical] Pulse Rate [Orthostatic Lying Left] Pulse Rate [Orthostatic Sitting Left] Pulse Rate [Orthostatic Standing Left] Respiratory Rate 18 20 18 Blood Pressure 135/71 139/69 139/69 Blood Pressure [Orthostatic Lying Right Arm] Blood Pressure [Orthostatic Sitting Right Arm] Blood Pressure [Orthostatic Standing Right Arm] Blood Pressure [Right Arm] Blood Pressure Mean [Right Arm] Blood Pressure Source Automatic Cuff Blood Pressure Source [Right Arm] Blood Pressure Position Sitting Blood Pressure Position [Right Arm] 02 Sat by Pulse Oximetry 97 97 Oxygen Delivery Method Room Air Room Air Room Air Lab Data Lab results reviewed: Yes I reviewed the patient's lab results. Lab Results 11/25/23 15:45: WBC 7.6, RBC 3.63 L, Hgb 10.7 L, Hct 32.7 L, MCV 90.0, MCH 29.4, MCHC 32.6, RDW 14.0, Plt Count 346, MPV 7.7, Neut % (Auto) 55.2, Lymph % (Auto) 33.6, [place] % (Auto) 8.4, Eos % (Auto) 2.2, Baso % (Auto) 0.7, Neut # (Auto) 4.2, Lymph # (Auto) 2.6, [place] # (Auto) 0.6, Eos # (Auto) 0.2, Baso # (Auto) 0.1, Sodium 134 L, Potassium 3.9, Chloride 102, Carbon Dioxide 27, Anion Gap 8.9, BUN 10, Creatinine 0.60, Estimated Creat Clear 34, Estimated GFR 96, Est GFR ( Amer) 116, Glucose 92, Calcium 8.7, Magnesium 1.8, Total Bilirubin 0.3, AST 31, ALT 16, Alkaline Phosphatase 121, Troponin I < 0.01, Total Protein 8.2, Albumin 4.3, Globulin 3.9 H, Albumin/Globulin Ratio 1.1, Lipase 68, TSH 0.48, Thyroxine (T4) 6.9 11/25/23 16:00: Urine Color Yellow, Urine Appearance Clear, Urine pH 6.5, Ur Specific [place] <= 1.005, Urine Protein Negative, Urine Glucose (UA) Negative, Urine Ketones Negative, Urine Blood 1+, Urine Nitrate Negative, Urine Bilirubin Negative, Urine Urobilinogen 0.2, Ur Leukocyte Esterase 2+ A, Urine RBC 5-10, Urine WBC 50-100, Ur Squamous Epith Cells 20-50, Urine Bacteria 3+ 11/25/23 15:45 11/25/23 15:45 Orders (Tests/Meds): ED MEDICATIONS Discontinued Medications Generic Name Dose Route Start Last Admin Trade Name Freq PRN Reason Stop Dose Admin Acetaminophen 1,000 mg 11/25/23 15:53 11/25/23 15:59 Acetaminophen 500mg Tab PO 11/25/23 15:54 1,000 mg ONCE ONE Administration Cefdinir 300 mg 11/25/23 17:07 11/25/23 17:19 Cefdinir 300mg Capsule PO 11/25/23 17:08 300 mg ONCE ONE Administration Lactated Ringer's 1,000 mls @ 999 mls/hr 11/25/23 15:53 11/25/23 15:59 Lactated Ringer's 1000 Ml Bag IV 11/25/23 16:53 999 mls/hr .Q1H1M ONE Administration Ketorolac Tromethamine 15 mg 11/25/23 15:53 11/25/23 15:58 Ketorolac 30mg/Ml Vial IV 11/25/23 15:54 15 mg ONCE ONE Administration Ondansetron HCl 4 mg 11/25/23 15:53 11/25/23 15:58 Ondansetron 4mg/2ml Vial IV 11/25/23 15:54 4 mg ONCE ONE Administration ORDERS Category Date Time Status CT head/brain wo con Stat Cat Scan 11/25/23 15:53 Completed CXR --portable [XR chest portable] Stat Exams 11/25/23 15:53 Completed CBC w/Auto Diff [Complete Blood Count Auto Diff] Stat Lab 11/25/23 15:45 Completed CMP [Comprehensive Metabolic Panel] Stat Lab 11/25/23 15:45 Completed Lipase Stat Lab 11/25/23 15:45 Completed MAG [Magnesium] Stat Lab 11/25/23 15:45 Completed T4 (Thyroxine) Stat Lab 11/25/23 15:45 Completed TSH [Thyroid Stimulating Hormone] Stat Lab 11/25/23 15:45 Completed Trop I [Troponin I] Stat Lab 11/25/23 15:45 Completed UA [Urinalysis and Microscopic] Stat Lab 11/25/23 16:00 Completed Urine Culture Stat Micro 11/25/23 16:00 Received ECG Data Tracing #1: I reviewed this ECG and interpreted as documented below: Normal sinus rhythm with a ventricular rate of [address] changes concerning for ischemia. Normal intervals. No changes from prior EKG ECG initial impression date: 11/25/23 ECG initial impression time: 15:56 Medical Decision Narrative: In summary, this patient is a 78-year-old female presenting to the Emergency Department for evaluation of lightheadedness, headache, nausea, and concern for low blood pressure reading at [facility] with a systolic of 105. She is also had multiple intermittent constitutional symptoms over the last several months without acute changes today. Differential diagnoses considered include but are not limited to UTI, dehydration, electrolyte derangements, viral syndrome, benign headache, stress, anxiety. Ruling out the most morbid conditions drove assessment. On exam, the patient is very well-appearing. Cardiopulmonary and abdominal exams are benign. Vitals are normal on cardiac telemetry. She is neurologically intact without focal neurologic deficits and she is ambulatory without difficulty. Workup included broad lab evaluation to look for infectious, metabolic, or cardiac causes of her symptoms as well as CT head without contrast, chest x-ray, and EKG. She was given a bolus of IV fluids as well as IV Toradol, oral Tylenol, and IV Zofran for symptomatic improvement. I independently interpreted CT scans and x-ray prior to the radiologist read and noted no large space-occupying lesion in the brain and no pneumothorax. Please see their read for final interpretation. They noted concerns for potential bibasilar atelectasis versus pneumonia. Labs were obtained that demonstrated no acutely concerning abnormalities at this time. Urine is possible for potential infection though it is contaminated with squamous cells. Given her nausea and symptoms, will treat as UTI just in case. She was given oral cefdinir here.. Orthostatic vital signs are normal. On reassessment, the patient is lying in bed in no acute distress with reassuring vital signs on cardiac telemetry. She remains very well-appearing. Ultimately, I feel she has had waxing waning symptoms for some time that are not emergent or life-threatening for which she can follow-up outpatient, but will treat her UTI with cefdinir. She was given strict return precautions and instructions for close outpatient follow-up. Critical Care Critical Care Time Critical Care Time: No
[2023-11-25] MEDS: KETOROLAC 30MG/ML VIAL 15 MG IV (15:58)
[2023-11-25] MEDS: ONDANSETRON 4MG/2ML VIAL 4 MG IV (15:58)
[2023-11-25 15:59] VITALS: BP 114/76; PULSE 71; O2SAT 98
[2023-11-25 15:59] LABS: Albumin Level 4.3 g/dl (3.5-5.0); Chloride 102 mmol/L (98-107); Potassium 3.9 mmoL/L (3.5-5.1); Sodium 134 mmol/L (136-145)
[2023-11-25] MEDS: ACETAMINOPHEN 500MG TAB 1000 MG PO (15:59)
[2023-11-25] MEDS: LACTATED RINGERS 1000ML 1,000 ML 999 ML IV (15:59)
[2023-11-25 16:01] LABS: Alanine Aminotransferase 16 U/L (12-78); Anion Gap 8.9 mEq/L (5-15); Aspartate Amino Transferase 31 U/L (14-36); Basophils # 0.1 K/mm3 (0-0.2); Basophils % 0.7 % (0.1-2.0); Blood Urea Nitrogen 10 mg/dl (7-17); Carbon Dioxide 27 mmol/L (22.0-30.0); Creatinine Clearance Estimated 34 mL/min (50-200); Eosinophils # 0.2 K/mm3 (0.0-0.4); Eosinophils % 2.2 % (0.1-12.0); Estimated Glomerular Filt Rate 96 ml/min (>60); GFR (African American) 116 ML/MIN (>60); Hematocrit 32.7 % (37.0-47.0); Hemoglobin 10.7 g/dL (12.2-16.2); Lymphocytes # 2.6 K/mm3 (0.7-4.5); Lymphocytes % 33.6 % (10-50); Mean Corpuscular HGB Conc 32.6 g/dL (31.8-35.4); Mean Corpuscular Hemoglobin 29.4 pg (27.0-31.2); Mean Platelet Volume 7.7 fl (7.4-10.4); Monocytes # 0.6 K/mm3 (0.1-1.0); Monocytes % 8.4 % (1.7-9.3); Neutrophils # 4.2 K/mm3 (1.8-7.8); Neutrophils % 55.2 % (37.0-80.0); Platelet Count 346 K/mm3 (142-424); Red Blood Count 3.63 M/mm3 (4.20-5.40); White Blood Count 7.6 K/mm3 (4.8-10.8)
[2023-11-25 16:02] LABS: Albumin/Globulin Ratio 1.1 (1.1-1.8); Alkaline Phosphatase 121 U/L (38-126); Bilirubin,Total 0.3 mg/dl (0.2-1.3); Calcium 8.7 mg/dl (8.4-10.2); Globulin 3.9 g/dL (1.3-3.2); Glucose 92 mg/dl (74-100); Lipase 68 U/L (23-300); Magnesium 1.8 mg/dl (1.6-2.3); Total Protein,Serum 8.2 g/dl (6.3-8.2)
[2023-11-25 16:13] LABS: Microscopic, Urine URINE MICROSCOPIC (MICROSCOPIC)
[2023-11-25 16:15] LABS: Troponin I < 0.01 ng/ml (0.00-0.034)
[2023-11-25 16:19] LABS: T4 (Thyroxine) 6.9 ug/dl (5.53-11.0)
[2023-11-25 16:20] LABS: Appearance,Urine CLEAR (Clear); Bilirubin,Urine Negative (Negative); Blood, Urine 1+ (Negative); Color,Urine YELLOW (Yellow); Glucose,Urine (UA) Negative (Negative); Ketones,Urine Negative (Negative); Leukocyte Esterase,Urine 2+ (Negative); Nitrate,Urine Negative (Negative); PH,Urine 6.5 (5.0-8.5); Protein,Urine Negative (Negative); Specific Gravity, Urine <= 1.005 (1.005-1.030); Urobilinogen,Urine 0.2 EU/dl (0.2)
[2023-11-25 16:32] LABS: Thyroid Stimulating Hormone 0.48 uIU/mL (0.465-4.68)
[2023-11-25 16:38] LABS: Squamous Epithelial Cell,Urine 20-50 #/hpf (0-5); WBC,Urine 50-100 #/hpf (0-3)
[2023-11-25 16:39] LABS: Bacteria,Urine 3+ /lpf
[2023-11-25 17:00] VITALS: BP 135/71; PULSE 72; RESP 18; O2SAT 97
[2023-11-25] MEDS: CEFDINIR 300MG CAPSULE 300 MG PO (17:19)
--- NOTE | 2023-11-25 17:23 | PC.NURSE ---
Dr. Herzog at BS to update pt on results and POC
[2023-11-25 17:30] VITALS: BP 139/69; PULSE 73; RESP 20; O2SAT 97
[2023-11-25 17:48] VITALS: BP 139/69; PULSE 73; RESP 18; TEMP 36.6; O2SAT 96
== END 2023-11-25 17:50 | disposition home or self-care (01) ==
PROVIDERS: Emergency Provider Emergency Medicine; PCP Family Medicine
DX: N39.0 Urinary tract infection, site not specified (principal); R11.0 Nausea; R51.9 Headache, unspecified; R42 Dizziness and giddiness; G40.909 Epilepsy, unspecified, not intractable, without status epilepticus; E03.9 Hypothyroidism, unspecified; I10 Essential (primary) hypertension
CPT/HCPCS: 70450; 71045; 80053; 81001; 83690; 83735; 84436; 84443; 84484; 85025; 87086; 93005; 96361; 96374; 96375; 99285; J1885; J2405; J7120

== ENCOUNTER 2024-08-02 18:03 | Emergency (ER) | payer MEDICARE, OTHER, SELFPAY ==
[2024-08-02 18:34] VITALS: BP 141/67; PULSE 78; RESP 18; TEMP 36.6; O2SAT 98; BMI 18.0
--- NOTE | 2024-08-02 18:35 | HMH.EDGENADL ---
Discharge Plan Disposition Patient Disposition: Home, Self-Care Condition: Good Prescriptions Prescriptions: New doxycycline hyclate 100 mg capsule 100 mg PO BID 14 Days Qty: 28 0RF ondansetron 4 mg tablet,disintegrating 4 mg PO QID PRN (Reason: nausea and vomiting) Qty: 10 0RF No Action levothyroxine [Synthroid] 50 mcg tablet 50 mcg PO DAILY bisoprolol fumarate 5 mg tablet See Rx Instructions .ROUTE .COMPLEX Qty: 90 3RF Dose Instruction: TAKE 1 TABLET BY MOUTH ONCE DAILY AT BEDTIME NIGHTLY FOR BLOOD PRESSURE Rx Instructions: TAKE 1 TABLET BY MOUTH ONCE DAILY AT BEDTIME NIGHTLY FOR BLOOD PRESSURE cefdinir 300 mg capsule 300 mg PO BID 10 Days Qty: 20 0RF aspirin 81 MG tablet,delayed release (DR/EC) 81 mg PO HS phenobarbital 15 mg tablet 45 mg PO HS phenytoin sodium extended 100 mg capsule 100 mg PO HS Referrals Follow up/Referrals: Dami Schumacher MD [Primary Care Provider] - See instructions Activity Restrictions/Add. Instructions Additional Instructions/Restrictions: If you develop any targeter lesions or rash joint aches or pains please fill your doxycycline and take it for 2 weeks. Please follow-up with Dr. Schumacher to ensure resolution. If you have any worsening signs or symptoms return to the ER as needed. Clinical Impressions Clinical Impression: Tick bite Qualifiers: Encounter type: initial encounter Site of tick bite: thoracic wall Front or back of thoracic wall: front Thoracic wall location detail: left Qualified Code(s): S20.362A - Insect bite (nonvenomous) of left front wall of thorax, initial encounter Instructions Patient Instructions: Animal Bites, Protect Yourself from Tickborne Illnesses Print Language Print Language: [place] Island[place] Discharge ED Provider: Beto Knowles General Adult HPI <CARMEN Valero - Last Filed: 08/02/24 19:10> General Chief complaint: Animal Bite Stated complaint: Tick on right side,itches,nausea,fever Time Seen by Provider: 08/02/24 18:35 History of Present Illness HPI narrative: Patient presents for evaluation of a tick bite. Patient noticed an itchy area on her left sided anterior lateral chest wall and found a embedded tick. They were able to remove the tick with tweezers but unsure if they have gotten the rest of the tick. She denies any rashes arthralgias fever chills hemoptysis hematochezia melena hematemesis hematuria chest pain shortness of breath. Patient does however report nausea since the tick was found but denies any vomiting or diarrhea. Related Data Home Medications ?Medication ?Instructions ?Recorded ?Confirmed aspirin 81 mg tablet,delayed 81 mg PO HS Heartburn 07/01/17 03/11/23 release levothyroxine 50 mcg tablet 50 mcg PO DAILY 03/11/23 03/11/23 (Synthroid) phenobarbital 15 mg tablet 45 mg PO HS seizures 03/11/23 03/11/23 phenytoin sodium extended 100 mg 100 mg PO HS epilepsy 03/11/23 03/11/23 capsule Previous Rx's ?Medication ?Instructions ?Recorded cefdinir 300 mg capsule 300 mg PO BID 10 days #20 caps 11/25/23 bisoprolol fumarate 5 mg tablet See Rx Instructions .Route 01/25/24 .COMPLEX #90 tabs doxycycline hyclate 100 mg capsule 100 mg PO BID 14 days #28 caps 08/02/24 ondansetron 4 mg disintegrating 4 mg PO QID PRN nausea and 08/02/24 tablet vomiting #10 tabs Allergies Allergy/AdvReac Type Severity Reaction Status Date / Time butorphanol (BUTORPHANOL) Allergy Severe ANAPHALTIC Verified 03/11/23 10:09 SHOCK iopamidol (IOPAMIDOL) Allergy Severe ANAPHYLAXIS Verified 03/11/23 10:09 penicillin V (From PEN-VEE K) Allergy Mild THRUSH Verified 03/11/23 10:09 diphenhydramine (From Allergy Unknown Verified 03/11/23 10:09 BENADRYL) iopanoic acid (IOPANOIC ACID) Allergy Unknown Verified 03/11/23 10:09 [facility] <CARMEN Valero - Last Filed: 08/02/24 19:10> [facility] Disclaimer: The information contained in this section may have been updated after the patient was seen, as this information can be updated by other users. Medical History Claudication Dyspnea Chest pain Seizure disorder Thyroid disease Depression SOB (shortness of breath) Mitral valve disorder Edema Palpitations PAF (paroxysmal atrial fibrillation) Social History Smoking Status: Never smoker second hand exposure: No alcohol intake: never substance use type: denies use current occupational status: retired Travel in the last 8 weeks: Inside the [place] Have you lived/traveled outside [place] in past 30 days?: No Contact w/someone who lives/traveled outside [place] past 30 days?: No Exposure to someone with infectious disease in past 14 days?: No Do you have a fever (greater than 100.4 F or 38 C)?: Yes Have you tested positive for COVID-19: No Exposed to someone with COVID-19 in past 14 days?: No Do you have a sore throat?: No Do you have a cough?: No Do you have any weakness?: No Do you have any diarrhea?: Yes Are you experiencing any unusual bleeding?: No Do you have any muscle aches/pain?: Yes Do you have any abdominal pain?: No Are you experiencing loss of taste or smell?: No Other Medical History Have you received the Flu Vaccine for this season: Yes Have you received the Pneumonia Vaccine: Yes <CARMEN Valero - Last Filed: 08/02/24 19:10> ROS Obtained: Yes Systems reviewed as appropriate & no additional complaints except as documented Physical Exam <CARMEN Valero - Last Filed: 08/02/24 19:10> General General appearance: alert and in no apparent distress Respiratory Respiratory exam: Present normal lung sounds bilaterally Cardiovascular Cardiovascular exam: Present regular rate Neurological Exam Neurological exam: Present alert and oriented X3 Medical Decision Making <CARMEN Valero - Last Filed: 08/02/24 19:10> Medical Records Medical records reviewed: Yes I reviewed the patient's medical records. Screening: Per USPSTF and CDC recommendations, given the prevalence of disease in our region, it is our hospital?s policy to screen for HIV and viral Hepatitis for all patients aged 18 and over and those with ongoing risk factors. Ankit Inquiry Pt receiving controlled substance: No Vital Signs: 08/02/24 18:34 08/02/24 18:58 Temperature 97.9 F 97.9 F Temperature Source Oral Oral Pulse Rate 68 Pulse Rate [Right] 78 Respiratory Rate 18 16 Blood Pressure 141/67 H Blood Pressure [Right Arm] 141/67 H Blood Pressure Mean [Right Arm] 91 Blood Pressure Source Automatic Cuff Blood Pressure Source [Right Arm] Automatic Cuff Blood Pressure Position [Right Arm] Supine 02 Sat by Pulse Oximetry 98 Oxygen Delivery Method Room Air Room Air Orders (Tests/Meds): ED MEDICATIONS Discontinued Medications Generic Name Dose Route Start Last Admin Trade Name Zoe PRN Reason Stop Dose Admin Doxycycline Hyclate 200 mg 08/02/24 18:52 08/02/24 19:13 Doxycycline Hycl 100 Mg Tablet PO 08/02/24 18:53 200 mg ONCE ONE Administration Ondansetron HCl 4 mg 08/02/24 18:51 08/02/24 19:12 Ondansetron 4mg Odt SL 08/02/24 18:52 4 mg ONCE ONE Administration Tetanus/Reduced Diphtheria/Acell Pertussis 0.5 ml 08/02/24 18:51 08/02/24 19:11 Tet/Diphth/Pert-Adult 0.5ml Syringe IM 08/02/24 18:52 0.5 ml .ONCE ONE Administration Medical Decision Narrative: In summary patient is a 79-year-old female who presents to the emergency department for evaluation of tick bite. Patient is hemodynamically stable upon arrival, afebrile. Physical exam is remarkable for a papular like tick bite in the anterior axillary line on the left about nipple level. There is no induration there is no cellulitis there is no erythema there is no rashes polyarthralgias.. Differential diagnosis includes tick bite versus early cellulitis although this seems less likely as there is no red flags to suggest such so diagnosis will not be pursued versus retained tick parts etc. Initial workup was considered with labs and imaging however patient has no evidence of systemic infection has no systemic complaints has no evidence of localized cellulitis including no induration or fluctuance. Initial interventions include 200 mg of doxycycline and Tdap along with Zofran. Patient was able to tolerate oral intake after administration of Zofran and this medication was given. Given this patient is appropriate for discharge with close follow-up with her PCP to ensure resolution and strict return precautions including polyarthralgias fever rash etc. I have sent in a prescription for doxycycline should she develop any of those symptoms prior to seeing her PCP and instructed her on how to take them. Patient verbalized understanding agreement. I have also sent a prescription for Zofran to help with her nausea. <Beto Knowles MD - Last Filed: 08/02/24 23:19> Vital Signs: 08/02/24 18:34 08/02/24 18:58 Temperature 97.9 F 97.9 F Temperature Source Oral Oral Pulse Rate 68 Pulse Rate [Right] 78 Respiratory Rate 18 16 Blood Pressure 141/67 H Blood Pressure [Right Arm] 141/67 H Blood Pressure Mean [Right Arm] 91 Blood Pressure Source Automatic Cuff Blood Pressure Source [Right Arm] Automatic Cuff Blood Pressure Position [Right Arm] Supine 02 Sat by Pulse Oximetry 98 Oxygen Delivery Method Room Air Room Air Orders (Tests/Meds): ED MEDICATIONS Discontinued Medications Generic Name Dose Route Start Last Admin Trade Name Freq PRN Reason Stop Dose Admin Doxycycline Hyclate 200 mg 08/02/24 18:52 08/02/24 19:13 Doxycycline Hycl 100 Mg Tablet PO 08/02/24 18:53 200 mg ONCE ONE Administration Ondansetron HCl 4 mg 08/02/24 18:51 08/02/24 19:12 Ondansetron 4mg Odt SL 08/02/24 18:52 4 mg ONCE ONE Administration Tetanus/Reduced Diphtheria/Acell Pertussis 0.5 ml 08/02/24 18:51 08/02/24 19:11 Tet/Diphth/Pert-Adult 0.5ml Syringe IM 08/02/24 18:52 0.5 ml .ONCE ONE Administration Medical Decision Narrative: In summary patient is a 79-year-old female who presents to the emergency department for evaluation of tick bite. Patient is hemodynamically stable upon arrival, afebrile. Physical exam is remarkable for a papular like tick bite in the anterior axillary line on the left about nipple level. There is no induration there is no cellulitis there is no erythema there is no rashes polyarthralgias.. Differential diagnosis includes tick bite versus early cellulitis although this seems less likely as there is no red flags to suggest such so diagnosis will not be pursued versus retained tick parts etc. Initial workup was considered with labs and imaging however patient has no evidence of systemic infection has no systemic complaints has no evidence of localized cellulitis including no induration or fluctuance. Initial interventions include 200 mg of doxycycline and Tdap along with Zofran. Patient was able to tolerate oral intake after administration of Zofran and this medication was given. Given this patient is appropriate for discharge with close follow-up with her PCP to ensure resolution and strict return precautions including polyarthralgias fever rash etc. I have sent in a prescription for doxycycline should she develop any of those symptoms prior to seeing her PCP and instructed her on how to take them. Patient verbalized understanding agreement. I have also sent a prescription for Zofran to help with her nausea. I was consulted by the KATI, and we discussed the complexity of the problems being addressed. I approved the treatment and management plan for this patient's care in the Emergency Department, thus performing a substantive portion of the medical decision making. Beto Knowles MD Critical Care <CARMEN Valero - Last Filed: 08/02/24 19:10> Critical Care Time Critical Care Time: No
[2024-08-02 18:58] VITALS: BP 141/67; PULSE 68; RESP 16; TEMP 36.6; O2SAT 98
[2024-08-02] MEDS: TET/DIPHTH/PERT-ADULT 0.5ML SYRINGE 0.5 ML IM (19:11)
[2024-08-02] MEDS: ONDANSETRON 4MG ODT 4 MG SL (19:12)
[2024-08-02] MEDS: DOXYCYCLINE HYCL 100 MG TABLET 200 MG PO (19:13)
== END 2024-08-02 19:23 | disposition home or self-care (01) ==
PROVIDERS: Emergency Provider Emergency Medicine; PCP Family Medicine
DX: S20.362A Insect bite (nonvenomous) of left front wall of thorax, initial encounter (principal); R11.0 Nausea; W57.XXXA Bitten or stung by nonvenomous insect and other nonvenomous arthropods, initial encounter; Z23 Encounter for immunization
CPT/HCPCS: 90471; 99283; 90715; Q0162

== ENCOUNTER 2024-10-15 13:08 | Outpatient (CLI) | payer MEDICARE, OTHER, SELFPAY ==
--- OUTSIDE RECORDS SUMMARY | 2024-03-20 05:15 | XMS_ITS ---
Author Organization [facility] Address [address] [facility] [address] [place] [id number] Care Team Providers Care Lawn Caretaker Name Role Phone Raulito Schumacher Primary Care Provider [phone] Allergies Allergen (clinical drug ingredient) Drug/Non Drug [...] 148 Performing Lab: Notes/Report: Test performed by [facility]0 [facility] , [address], [place] [address] Vin West MD, Diving Coach CLIA: [id number] Sodium 131 135-145 mmol/L Potassium 4.5 3.5-5.3 [...] 134 Performing Lab: Notes/Report: Test performed by [facility], [address] , [place] [address] Vin West MD, Diving Coach CLIA: [id number] Cholesterol 215 <200 mg/dL Triglycerides 110 <150 [...] Interpretation:12 Performing Lab: Notes/Report: Test performed by [facility] [address] [place], [place] [address] [place] , [address], [place] [address] Vin West MD, Diving Coach CLIA: [id number] Phenobarbital 12.0 15.0-40.0 ug/mL P-TSH Reviewed date:03/27/2024 08:31:19 AM Interpretation:Normal Performing Lab: Notes/Report: Test performed by [facility] [address] [place], [place] [address] [place] , [address], [place] [address] Vin West MD, Diving Coach CLIA: [id number] TSH 0.59 0.43-5.25 mU/L REASON FOR VISIT Check Up and Labs, Needs bone density screening & flu vaccine Medications Medication SIG (Take, Route, Frequency, Duration) Notes Start Date End Date Status Dilantin Infatabs 50 MG CHEW AND SWALLOW 1/2 TABLET BY MOUTH AT BEDTIME NEEDED for 90 Not-Taking Bisoprolol Fumarate 5 MG 1 tab(s) orally once a day Active Aspirin 81 MG 1 tab(s) orally once a day Active Triamcinolone Acetonide 0.1 % 1 moe applied topically 3 times a day for 7 day(s) 09/17/2022 Not-Taking Synthroid 50 MCG Take 1 tablet by mouth once daily Active Milk Thistle 175MG Q DAY ORAL *Please revie w and pick correct strength-formulat ion from Medispan options. If intended option is not shown, discontinue and re-order from Quick Search* Not-Taking Fosamax 70 MG 1 TAB once a week for 28 DAYS 10/23/2021 Not-Taking Phenytoin Sodium Extended 100 MG TAKE 1 CAPSULE BY MOUTH AT BEDTIME FOR 30 DAYS for 30 Active Macrobid 100 MG 1 cap(s) Orally every 12 hrs for 7 days 02/10/2023 Not-Taking Vitamin A & D DIRECTED *Please review and pick correct strength-formulat ion from [employer]. com options. If intended option is not shown, discontinue and re-order from Quick Search* Not-Taking Dilantin 100 MG Take 1 capsule by mouth at bedtime Active Levothyroxine Sodium 50 MCG Take 1 tablet by mouth once daily for 90 days Active PHENobarbital 15 MG 2 tab(s) orally once a day, bedtime Active Calcium-Vitamin D-Minerals 600-800 MG-UNIT 1 tab(s) orally 2 times a day Active Immunizations Vaccine Route Administration Date Status Comme nts Fluzone High Dose (65yr and older) IM Intramuscular 03/20/2024 Administered Vital Signs Blood pressure systolic 100 mm Hg 03/20/20 24 Blood pressure diastolic 60 mm Hg 024 Heart Rate 67 /min 03/20/2024 Height 62.50 in 03/20/2024 Weight 105.2 lbs 03/20/2024 BMI 18.93 kg/m2 03/20/2024 Encounters Encounter Location Date Provider Diagnosis [facility] [facility] [address] [phone] 03/20/2024 R Rodriguez Schumacher Seizure disorder G40 .909 ; Acquired [...] Months, Reason: Progress Notes * LO BERNARDOALDOOB:1945 (79 yo F)Acc No.[id number]:03/20/2024 Progress Notes Patient: TOREY MYERS Provider: Raulito Schumacher M.D. :1945 A ge:79 Y S ex:Female Date:03/20/2024 Address:[address] [place] [address] [place] [address], [id number] Subjective: * Chief Complaints: * 1 . [...] * Hospitalization/Major Diagno stic Procedure: D iarrhea- [place] 1968, Heart Flutters 02/21/2015, Chest Pain- [facility] . * Family History: F [...] review and pick correct strength- formulation from Archetypesan options. If intended option is not shown, discontinue and re-order from Quick Search*, Not-Taking Milk Thistle 175MG Q DAY ORAL , Notes to Pharmacist: *Please review and pick correct strength-formulation from [employer]Tap ([employer])span options. If intended option is not shown, [...] Appearance: N AD. Affect good. Weight stable. Neck: s upple, no lymphadenopathy. Heart: R SR. Lungs: c lear to auscultation. Extremities: n o leg edema. No acute joint [...] T SH 0.59 0.43-5.25 - mU/L * EndyRaulito sams 03/27/2024 8 :31:09 AM >See phone encounter [...] by Creatinine 90 >59 - mL/min/1.73m2 * Raulito Schumacher 03/27/2024 8 :31:09 AM [...] G 2211 Complex e/[place], [address] CBC WITH AUTO DIFF, 25210 VENIPUNCT, ROUTINE* * Follow Up: 6 Months * Billing Information: * Visit Code: 18508 Office Visit, Est Pt., Level 4. * Procedure Codes: G2211 Complex e/[place]. [address] CBC WITH AUTO DIFF. 98921 VENIPUNCT, ROUTINE*. * Electronic signature of Raulito Schumacher MD on 10/15/2024 at 01:20 PM EDT Sign off status: Pending * Provider: Raulito Schumacher M.D. Date: 05/20/2023 Generated for Tramaine grove/Ade/Katinaitting on: 0 10/15/2024 01:20 PM EDT History and Physical Notes * HPI (History of Present Illness) Category Sub-Category Detail Notes Category Not es [facility]ocrinology [facility] Pt [...] or warmth. General Appearance: NAD. Affect good. W eight stable Neck: supple, no lymphaden opathy
--- OUTSIDE RECORDS SUMMARY | 2024-09-27 11:15 | XMS_ITS ---
Author Organization [facility] Address [address] [place] [id number] Care Team Providers Care Cnc Operator Machinist Name Role Phone Raulito Schumacher Primary Care [...] Interpretation: Performing Lab: Notes/Report: Test performed by [facility] [address] [place] [address] , [address], [place] [address] Vin West MD, Supervisor [employer] Canning CLIA: [id number] Vitamin B12 151 484-8800 pg/mL P-Comprehensive Metabolic Pa ethan (CMP) Reviewed date:10/02/2024 08:36:56 AM Interpretation: Performing Lab: Notes/Report: Test performed by [facility] [address] [place] [address] , [address], [place] [address] Vin West MD, Supervisor [employer]ning CLIA: [id number] Sodium 133 135-145 mmol/L Potassium 4.4 3.5-5.3 [...] Interpretation: Performing Lab: Notes/Report: Test performed by [facility] [address] [place] [address] , [address], [place] [address] Vin West MD, Supervisor [employer] CLIA: [id number] TSH 0.49 0.43-5.25 mU/L P-Vitamin D 25-Hydroxy Reviewed date:10/02/2024 08:36:56 AM Interpretation: Performing Lab: Notes/Report: Test performed by [facility] [address] [place] [address] , [address], [place] [id number] Vin West MD, Supervisor [employer] CLIA: [id number] Vitamin D 25-Hydroxy 26.6 30.0-100.0 ng/mL Interpretation [...] w and pick correct strength-formulat ion from [employer] options. If intended option is not shown, discontinue and re-order from Quick Search* Not-Taking Vitamin A & D DIRECTED *Please review and pick correct strength-formulat ion from [employer] options. If intended option is not shown, discontinue and re-order from Quick Search* Not-Taking Macrobid 100 MG 1 cap(s) Orally every 12 hrs for 7 days 02/10/2023 Not-Taking Phenytoin Sodium Extended 100 MG Take 1 capsule by mouth once daily at bedtime for 30 days patient must have appt prior to further refills. Active Levothyroxine Sodium 50 MCG 1 tab(s) Orally Once a day for 90 days Active PHENobarbital 15 MG 2 tab(s) Orally once a day, bedtime for 90 days 09/27/2024 Active Calcium-Vitamin D-Minerals 600-800 [...] a day for 7 day(s) 09/17/2022 Not-Taking Dilantin Infatabs 50 MG CHEW AND SWALLOW 1/2 TABLET BY MOUTH AT BEDTIME NEEDED for 90 Not-Taking Fosamax 70 MG 1 TAB once a week for 28 DAYS 10/23/2021 Not-Taking Bisoprolol Fumarate 5 MG 1 tab(s) orally once a day Active Problems Problem Type SNOMED Code ICD Code Onset Dates Problem Status W/U Status Risk Notes Problem Neuropathy (283559991) Neuropathy (G62.9) Active confirmed Vital Signs Blood pressure systolic 100 mm Hg 09/28/19 25 Blood pressure diastolic 60 mm Hg 025 Heart Rate 81 /min 09/27/2024 Height 62.50 in 09/27/2024 Weight 111.0 lbs 09/27/2024 BMI 19.98 kg/m2 09/27/2024 Encounters Encounter Location Date Provider Diagnosis [facility] [address] [facility] [address] [place] [id number] 09/27/2024 Raulito Schumacher Adult general medica l [...] MG 2 tab(s) Orally once a day, bedtime for 90 days 09/27/2024 Dilantin 100 MG Take [...] Notes * BECCA BERNARDOOB:1945 (79 yo F)Acc No.[id number]:09/27/2024 Annual Wellness Visit Patient: Nadir TOREY PERALES Provider: Raulito Schumacher M.D. :1945 A ge:79 Y S ex:Female Date:09/27/2024 Address:[address] [place] [address] [address] [place], [id number] Subjective: * Chief Complaints: * 1 . [...] * Hospitalization/Major Diagno stic Procedure: D iarrhea- [place] 1968, Heart Flutters 02/21/2015, Chest Pain- [facility] . * Family History: F ather: [...] *Please review and pick correct strength-formulation from [employer] options. If intended option is not shown, discontinue and re-order from Quick Search*, Not-Taking Milk Thistle 175MG Q DAY ORAL , Notes to Pharmacist: *Please review and pick correct strength-formulation from [employer] options. If intended option is not shown, [...] Temp: 97.9, BP: 100/60, HR: 81, Nurse: mm, Ht: 62.50, BMI:19.98. * Examination: G eneral Examination: General Appearance: N AD. Affect good. Weight gain noted. Neck: s upple, no lymphadenopathy. Heart: R SR. Lungs: c lear to auscultation. Extremities: T race edema of the left ankle. [...] as: ?. B ladder Control Screening: D enies problems.? Assessment: * Assessment: 1. A dult [...] 0.49 0.43-5.25 - mU/L * Raulito Schumacher Rodriguez 10/02/2024 08:36:45 AM EDT > See phone encounter 4.?Paroxysmal SVT (supraventricular tachycardia)? Continue Bisoprolol Fumarate Tablet, 5 MG, 1 tab(s), orally, once a day.?? 5.?Neuropathy?LAB: P-Vitamin B12 (Collection Date & Time - 09/27/2024 02:44 PM)* Value Reference Range V itamin B12 720 540-2597 - pg/mL * Endy Raulito Rodriguez 10/02/2024 08:36:45 AM EDT > See phone [...] LEVEL OF ACTIVITY ASSESS, 1036F TOBACCO NON-USER, 39994 CBC WITH AUTO DIFF, G8783 BP SCR [...] recommended. * Follow Up: 6 Months * Billing Information: * Visit Code: 52959 Office Visit, Est Pt., Level 3. Modifiers: 25 * Procedure Codes: G0439 ANNUAL WELLNESS VST; PPS SUBSQT VST. G2211 Complex e/m visit add on. 1090F PRES/ABSN URINE INCON ASSESS. 3288F FALL RISK ASSESSMENT DOCD. 1170F FXNL STATUS ASSESSED. 1159F MED LIST DOCD IN RCRD. 1003F LEVEL OF ACTIVITY ASSESS. 1036F TOBACCO NON-USER. 10283 CBC WITH AUTO DIFF. G8783 BP SCR PRFRM RCMDD DEFIND SCR INTVL. G8752 MOST RECENT SYSTOLIC BP < 140MM HG. G8754 MOST RECENT DIASTOLIC BP < 90MM HG. G8420 BMI<30 AND >=22 CALC & DOCU. * Electronic signature of Raulito Schumacher MD on 10/15/2024 at 01:20 PM EDT Sign off status: Pending * Provider: Raulito Schumacher M.D. Date: 09/27/2024 Generated for Tramaine grove/Ade/Katinaitting on: 10/15/2024 01:20 PM EDT History and Physical [...]
--- OUTSIDE RECORDS SUMMARY | 2024-09-29 11:09 | XMS_ITS ---
Author Organization [facility] Address [address] [facility] [address] [facility] [address] [place] [id number] Care Team Providers Care Ibm Websphere Commerce Consultant Name Role Phone Raulito Schumacher Primary Care Provider REASON FOR VISIT due for screenings Encounters Encounter Location Date Provider Diagnosis Chris [address] [facility] [address] [facility] [address] [place] [id number] 09/29/2024 Raulito Schumacher Screening for osteoporosis Z13.820 Assessments Encounter Date Diagnosis (ICD Code) Assessment Notes Treatment Notes Treatment Clinical Notes Section Notes 09/29/2024 Screening for osteoporosis (ICD-10 - Z13.820) Plan Of Treatment Pending Test Test Name Order Date Bone density 09/29/2024 Progress Notes * BECCA BERNARDOOB:1945 (79 yo F)Acc No.[id number]:09/29/2024 Patient: Nadir ANGELLACLAYTONTOREY :1945 A ge:79 Y S ex:Female Address:[address] [facility] [address] [place], [address] Subjective: * Chief Complaints: * D ue for screenings * Medical History: * Surgical History: * Hospitalization/Major Diagno stic Procedure: * Medications: Objective: * Vitals: * Physical Examination: Assessment: * Assessment: 1. S creening for osteoporosis - Z13.820 (Primary) Plan: * Treatment: * Procedure Codes: * true * Date: Generated for Printi ng/Faxing/eTransmitting on: 0 10/15/2024 01:21 PM EDT
--- NOTE | 2024-10-15 13:10 | XR_ITS ---
FINAL REPORT CLINICAL HISTORY: SCREENING COMPARISON: 10/13/2021 FINDINGS: Using L1-4, the bone mineral density of the spine is 0.635 g/cm2, corresponding to T-score of -3.7. Using the left hip, the bone mineral density of the femoral neck is 0.472 g/cm2, corresponding to a T-score of -3.9. Using the right hip, the bone mineral density of the femoral neck is 0.5.5 g/cm2, corresponding to a T-score of -3.0. NOTE: T-score: Standard deviation compared with peak bone mass of young adult mean. *Following the recommendations of the International Society of Bone densitometry, classification of hip BMD is based on the lower of two T-scores; total hip or femoral neck. Reviewed, Interpreted and Dictated by Valerio Carrington MD Transcribed by Carolina Eller Authenticated and . [facility]
--- OUTSIDE RECORDS SUMMARY | 2024-10-15 13:20 | XMS_ITS ---
Author Organization Unknown Medications Date Medication Dosage DosageUnit StartDate StopDate StopReason Active DoseQuantity DoseUnit Dispense DispenseUnit Refills NdcCode DrugCode PharmacyId IsPrescription MappedMedication Srcstatus 09/05 00:00 :00 Phenytoin Sodium Extended 100 MG Capsule 1 30 Capsule 0 [id number] Start 09/05 00:00 :00 Phenytoin Sodium Extended 100 MG Capsule 0 30 Capsule 1 [id number] Stop
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
--- OUTSIDE RECORDS SUMMARY | 2024-10-15 13:21 | XMS_ITS | Clinical Summary ---
Author Organization [facility] Address [facility] [place] [address] Care Team Providers Care Restaurant District Manager Name Role Phone Unavailable Primary Care Provider Unavailabl e Source Comments This information has been disclosed to you from confidential records protectedfrom disclosure by state law. You shall make no further disclosure of thisinformation without the specific, written, and informed release of theindividual to whom it pertains, or as otherwise permitted by law. A generalauthorization for the release of medical or other information is not sufficientfor the purposes of therelease of HIV test results or diagnoses. [id number] Social History Tobacco Use Types Packs/Day Years Used Date Smoking Tobacco: Never Assessed Comments Unknown Sex and Gender Information Value Date Recorded Sex Assigned at Not on file Legal Sex Female 11:11 PM EST Gender Identity Not on file Sexual Orientation Not on file Plan of Treatment Not on file
== END 2024-10-15 23:59 | disposition home or self-care (01) ==
LOC: RAD 13:09
PROVIDERS: PCP Family Medicine; Visit Provider Family Medicine
DX: R93.7 Abnormal findings on diagnostic imaging of other parts of musculoskeletal system (principal); M81.0 Age-related osteoporosis without current pathological fracture
CPT/HCPCS: 77080

== ENCOUNTER 2024-10-29 08:18 | Outpatient (CLI) | payer MEDICARE, OTHER, SELFPAY ==
--- OUTSIDE RECORDS SUMMARY | 2024-03-20 05:15 | XMS_ITS ---
Author Organization [facility] Address [address] [facility] [address] [place] [id number] Care Team Providers Care Linux Support Engineer Name Role Phone Raulito Schumacher Primary Care [...] 148 Performing Lab: Notes/Report: Test performed by [facility]0 [facility] , [address], [place] [address] Vin West MD, Delivery Supervisor CLIA: [id number] Sodium 131 135-145 mmol/L Potassium 4.5 3.5-5.3 [...] 134 Performing Lab: Notes/Report: Test performed by [facility], [address] , [place] [address] Vin West MD, Delivery Supervisor CLIA: [id number] Cholesterol 215 <200 mg/dL Triglycerides 110 <150 [...] Interpretation:12 Performing Lab: Notes/Report: Test performed by [facility] [address] [place], [place] [address] , [address], [place] [address] Vin West MD, Delivery Supervisor CLIA: [id number] Phenobarbital 12.0 15.0-40.0 ug/mL P-TSH Reviewed date:03/27/2024 08:31:19 AM Interpretation:Normal Performing Lab: Notes/Report: Test performed by [facility] [address] [place], [place] [address] , [address], [place] [address] Vin West MD, Delivery Supervisor CLIA: [id number] TSH 0.59 0.43-5.25 mU/L REASON FOR VISIT [...] review and pick correct strength-formulat ion from American Efficientspan options. If intended option is not shown, [...] Encounter Location Date Provider Diagnosis [facility] 1210 [facility] [address] [phone] 03/20/2024 Raulito Schumacher Seizure disorder G40 .909 [...] Notes * LO BERNARDOALDOOB:1945 (79 yo F)Acc No.[id number]:03/20/2024 Progress Notes Patient: TOREY MYERS Provider: Raulito Schumacher M.D. :1945 A ge:79 Y S ex:Female Date:03/20/2024 Address:[address] [place], [place] [address] [address] [id number] Subjective: * Chief Complaints: * 1 . [...] Surgical History: R T Breast Lumpectomy, Benign 1980's , Hemorhoid , LT Meniscus Tear Repair/ Dr. Yeung 1998, LT Elbow 03/30/2009, C-scope/Diverticulosis/Dr. Cody 04/2014. * Hospitalization/Major Diagno stic Procedure: D iarrhea- [place] 1968, Heart Flutters 02/21/2015, Chest Pain- [facility] . * Family History: F [...] review and pick correct strength- formulation from American Efficientspan options. If intended option is not shown, discontinue and re-order from Quick Search*, Not-Taking Milk Thistle 175MG Q DAY ORAL , Notes to Pharmacist: *Please review and pick correct strength-formulation from American Efficientspan options. If intended option is not shown, [...] 0.59 0.43-5.25 - mU/L * Raulito Schumacher 03/27/2024 8 :31:09 AM [...] 90 >59 - mL/min/1.73m2 * Raulito Schumacher Rodriguez 03/27/2024 8 :31:09 [...] G 2211 Complex e/[place], [address] CBC WITH AUTO DIFF, 47084 VENIPUNCT, ROUTINE* * Follow Up: 6 Months * Images: Billing Information: * Visit Code: 59070 Office Visit, Est Pt., Level 4. * Procedure Codes: G2211 Complex e/[place]. [address] CBC WITH AUTO DIFF. 00485 VENIPUNCT, ROUTINE*. * Electronic signature of Raulito Schumacher MD on 10/29/2024 at 08:31 AM EDT Sign off status: Pending * Provider: Raulito Schumacher M.D. Date: 05/20/2023 Generated for [place]am[place]ve/Ade/eTransmitting on: 0 10/29/2024 08:31 AM EDT History and Physical Notes * HPI (History of Present Illness) Category Sub-Category Detail Notes Category Not es Endocrinology Maintenance Pt presents to y for a check up and labs. Pt [...]
--- OUTSIDE RECORDS SUMMARY | 2024-09-27 11:15 | XMS_ITS ---
Author Organization [facility] Address [address] [place] [phone] Care Team Providers Care Fur Grader Name Role Phone Raulito Schumacher Primary Care Provider [phone] Allergies Allergen (clinical drug ingredient) Drug/Non Drug [...] Interpretation: Performing Lab: Notes/Report: Test performed by [facility] [place] [facility] [address] [place] [address] , [address], [place] [address] Vin West MD, Air Filler CLIA: [id number] Vitamin B12 344 193-1543 pg/mL P-Comprehensive Metabolic Pa ethan (CMP) Reviewed date:10/02/2024 08:36:56 AM Interpretation: Performing Lab: Notes/Report: Test performed by [email or web address] [address] [place] [address] , [address], [place] [address] Vin West MD, Air Filler CLIA: [id number] Sodium 133 135-145 mmol/L Potassium 4.4 3.5-5.3 [...] Interpretation: Performing Lab: Notes/Report: Test performed by [email or web address] [address] [place] [address] , [address], [place] [address] Vin West MD, Air Filler CLIA: [id number] TSH 0.49 0.43-5.25 mU/L P-Vitamin D 25-Hydroxy Reviewed date:10/02/2024 08:36:56 AM Interpretation: Performing Lab: Notes/Report: Test performed by [email or web address] [address] [place] [address] , [address], [place] [id number] Vin West MD, Air Filler CLIA: [id number] Vitamin D 25-Hydroxy 26.6 30.0-100.0 ng/mL Interpretation [...] w and pick correct strength-formulat ion from [employer] options. If intended option is not shown, discontinue and re-order from Quick Search* Not-Taking Vitamin A & D DIRECTED *Please review and pick correct strength-formulat ion from [employer] options. If intended option is not shown, [...] Status W/U Status Risk Notes Problem Neuropathy (382850987) Neuropathy (G62.9) Active confirmed Vital Signs Blood pressure systolic 100 mm Hg 09/28/19 25 Blood pressure diastolic 60 mm Hg 025 Heart Rate 81 /min 09/27/2024 Height 62.50 in 09/27/2024 Weight 111.0 lbs 09/27/2024 BMI 19.98 kg/m2 09/27/2024 Encounters Encounter Location Date Provider Diagnosis [facility] [address] [place] [id number] 09/27/2024 Raulito Schumacher Adult general medica l [...] Months, Reason: Progress Notes * BECCA BERNARDOOB:1945 (79 yo F)Acc No.[id number]:09/27/2024 Annual Wellness Visit Patient: TOREY MYERS Provider: Raulito Schumacher M.D. :1945 A ge:79 Y S ex:Female Date:09/27/2024 Address:[address] [place], [place] [address] [address], [id number] Subjective: * Chief Complaints: * 1 . [...] * Hospitalization/Major Diagno stic Procedure: D iarrhea- [place] 1968, Heart Flutters 02/21/2015, Chest Pain- [facility] . * Family History: F [...] *Please review and pick correct strength-formulation from [employer] options. If intended option is not shown, discontinue and re-order from Quick Search*, Not-Taking Milk Thistle 175MG Q DAY ORAL , Notes to Pharmacist: *Please review and pick correct strength-formulation from [employer] options. If intended option is not shown, [...] as: ?. B ladder Control Screening: D chong problems.? Assessment: * Assessment: 1. A dult [...] PM)* Value Reference Range V itamin B12 764 588-4678 - pg/mL * Raulito Schumacher 10/02/2024 08:36:45 [...] LEVEL OF ACTIVITY ASSESS, 1036F TOBACCO NON-USER, 56468 CBC WITH AUTO DIFF, G8783 BP SCR [...] * Images: Billing Information: * Visit Code: 46573 Office Visit, Est Pt., Level 3. Modifiers: 25 * Procedure Codes: G0439 ANNUAL WELLNESS VST; PPS SUBSQT VST. G2211 Complex e/m visit add on. 1090F PRES/ABSN URINE INCON ASSESS. 3288F FALL RISK ASSESSMENT DOCD. 1170F FXNL STATUS ASSESSED. 1159F MED LIST DOCD IN RCRD. 1003F LEVEL OF ACTIVITY ASSESS. 1036F TOBACCO NON-USER. 41689 CBC WITH AUTO DIFF. G8783 BP SCR PRFRM RCMDD DEFIND SCR INTVL. G8752 MOST RECENT SYSTOLIC BP < 140MM HG. G8754 MOST RECENT DIASTOLIC BP < 90MM HG. G8420 BMI<30 AND >=22 CALC & DOCU. * Electronic signature of Raulito Schumacher MD on 10/29/2024 at 08:32 AM EDT Sign off status: Pending * Provider: Raulito Schumacher M.D. Date: 0 09/27/2024 Generated for [place]/Ade/Katinaitting on: 0 10/29/2024 08:32 AM EDT History and Physical Notes * [...]
--- OUTSIDE RECORDS SUMMARY | 2024-09-29 11:09 | XMS_ITS ---
Author Organization [facility] Address [address] [facility] [address] [facility] [address] [place] [id number] Care Team Providers Care Black Leather Buffer Name Role Phone Raulito Schumacher Primary Care Provider [phone] Results Component Value Reference Range Notes Bone density Reviewed date:10/23/2024 08:27:31 AM Interpretation:osteoporosis Performing Lab: Notes/Report: osteoporosis REASON FOR VISIT due for screenings Encounters Encounter Location Date Provider Diagnosis Aditya [address] [facility] [address] [facility] [address] [place] [id number] 09/29/2024 Raulito Schumacher Screening for osteoporosis Z13.820 Assessments Encounter Date Diagnosis (ICD Code) Assessment Notes Treatment Notes Treatment Clinical Notes Section Notes 09/29/2024 Screening for osteoporosis (ICD-10 - Z13.820) Plan Of Treatment No Information Progress Notes * BECCA BERNARDOOB:1945 (79 yo F)Acc No.[id number]:09/29/2024 Patient: CLAYTON MYERSLYN :1945 A ge:79 Y S ex:Female Address:[address] [facility] [address] [place], [id number] Subjective: * Chief Complaints: * D ue for screenings * Medical History: * Surgical History: * Hospitalization/Major Diagno stic Procedure: * Medications: Objective: * Vitals: * Physical Examination: Assessment: * Assessment: 1. S creening for osteoporosis - Z13.820 (Primary) Plan: * Treatment: * Procedure Codes: * true * Date: Generated for Tramaine grove/Ade/Filippo on: 10/29/2024 08:32 AM EDT
--- NOTE | 2024-10-29 08:29 | US_ITS ---
FINAL REPORT TECHNIQUE: Ultrasound images of the abdomen were obtained. CLINICAL HISTORY: ABD PAIN COMPARISON: None FINDINGS: The pancreas is obscured by bowel gas. The liver is unremarkable. The gallbladder is unremarkable. The common duct is normal. The right kidney measures 8.7 cm in length and is normal in echogenicity without hydronephrosis. The left kidney measures 10.1 cm in length and is normal in echogenicity without hydronephrosis. The spleen is unremarkable. The aorta is normal in caliber. The vena cava is unremarkable. IMPRESSION: Normal ultrasound of the abdomen. Reviewed, Interpreted and Dictated by Andrea Ramirez MD Transcribed by Ting Stevens Authenticated and [facility]
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
--- OUTSIDE RECORDS SUMMARY | 2024-10-29 08:32 | XMS_ITS | Clinical Summary ---
Author Organization [facility] Address [facility] [place] [address] Care Team Providers Care Program Attendant Name Role Phone Unavailable Primary Care Provider [...] therelease of HIV test results or diagnoses. [id number] Social History Tobacco Use Types Packs/Day Years Used Date Smoking Tobacco: Never Assessed Comments Unknown Sex and Gender Information Value Date Recorded Sex Assigned at Not on file Legal Sex Female 11:11 PM EST Gender Identity Not on file Sexual Orientation Not on file Plan of Treatment Not on file
== END 2024-10-29 23:59 | disposition home or self-care (01) ==
LOC: RAD 08:20
PROVIDERS: PCP Family Medicine; Visit Provider Nurse Practitioner Family
DX: R10.9 Unspecified abdominal pain (principal)
CPT/HCPCS: 76700

== ENCOUNTER 2025-03-04 15:03 | Outpatient (CLI) | payer MEDICARE, OTHER, SELFPAY ==
--- OUTSIDE RECORDS SUMMARY | 2025-03-04 15:10 | XMS_ITS | Clinical Summary ---
Author Organization [facility] Address [facility] [place] [address] Care Team Providers Care Performance Reporter Name Role Phone Unavailable Primary Care Provider [...] therelease of HIV test results or diagnoses. [id number] Social History Tobacco Use Types Packs/Day Years Used Date Smoking Tobacco: Never Assessed Comments Unknown Sex and Gender Information Value Date Recorded Sex Assigned at Not on file Legal Sex Female 11:11 PM EST Gender Identity Not on file Sexual Orientation Not on file Plan of Treatment Not on file
[2025-03-04 15:52] LABS: Hematocrit 30.8 % (37.0-47.0); Hemoglobin 9.9 g/dL (12.2-16.2); Immature Granulocytes % 0.3 %; Mean Corpuscular HGB Conc 32.1 g/dL (31.8-35.4); Mean Corpuscular Hemoglobin 26.4 pg (27.0-31.2); Mean Corpuscular Volume 82.1 fl (81-99); Nucleated Red Blood Cells % 0 %; Platelet Count 309 K/mm3 (142-424); Red Blood Count 3.75 M/mm3 (4.20-5.40); Red Cell Distribution Width-SD 44.3 fL; White Blood Count 6.7 K/mm3 (4.8-10.8)
[2025-03-04 17:06] LABS: Alanine Aminotransferase 13 U/L (12-78); Albumin Level 4.5 g/dl (3.5-5.0); Alkaline Phosphatase 158 U/L (38-126); Anion Gap 10.0 mEq/L (5-15); Aspartate Amino Transferase 28 U/L (14-36); Bilirubin,Direct 0.1 mg/dl (0.0-0.4); Bilirubin,Indirect 0.2 mg/dL (0.0-0.9); Bilirubin,Total 0.3 mg/dl (0.2-1.3); Bilirubin,Unconjugated 0.2 mg/dL (0.0-1.1); Blood Urea Nitrogen 12 mg/dl (7-17); Calcium 9.5 mg/dl (8.4-10.2); Carbon Dioxide 25 mmol/L (22.0-30.0); Chloride 99 mmol/L (98-107); Cholesterol 204 mg/dl (140-200); Creatinine,Serum 0.70 mg/dl (0.52-1.04); Estimated Glomerular Filt Rate 80 ml/min (>60); GFR (African American) 97 ML/MIN (>60); Glucose 91 mg/dl (74-100); HDL Cholesterol 67 mg/dl (40-60); Magnesium 1.7 mg/dl (1.6-2.3); Potassium 4.0 mmoL/L (3.5-5.1); Sodium 130 mmol/L (136-145); Total Protein,Serum 8.4 g/dl (6.3-8.2); Triglycerides 99 mg/dl (30-150)
[2025-03-04 17:22] LABS: Free T4 (Free Thyroxine) 1.00 ng/dl (0.78-2.19)
[2025-03-04 17:35] LABS: Thyroid Stimulating Hormone 0.62 uIU/mL (0.465-4.68)
== END 2025-03-04 23:59 | disposition home or self-care (01) ==
LOC: LAB 15:05
PROVIDERS: PCP Family Medicine; Visit Provider Physician Assistant
DX: I47.10 Supraventricular tachycardia, unspecified (principal); I48.0 Paroxysmal atrial fibrillation; E78.5 Hyperlipidemia, unspecified
CPT/HCPCS: 36415; 80048; 80061; 80076; 83735; 84439; 84443; 85025; 93270

== ENCOUNTER 2025-03-27 13:15 | Outpatient (CLI) | payer MEDICARE, OTHER, SELFPAY ==
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
--- OUTSIDE RECORDS SUMMARY | 2024-09-27 10:15 | XMS_ITS ---
Author Organization [facility] Address [address] [place] [id number] Care Team Providers Care Prevocational/Rehabilitation Counselor Name Role Phone Raulito Schumacher Primary Care Provider [phone] Allergies Allergen (clinical drug ingredient) Drug/Non Drug Allergy documented on EMR Reaction Allergy Type Onset Date Status IOPAN (uncoded) unable to urinate, vision problems Allergy Active butorphanol Butorphanol Tartrate unable to urinate, tongue swollen, vision issues Drug Allergy Active Results Component Value Reference Range Notes CBC Venipuncture (in house) Reviewed date:10/02/2024 08:36:56 AM Interpretation: Performing Lab: Notes/Report: wbc 7.4 3.5 - 10 lymph 28.8 15 - 50 mid 6.4 2 - 15 gran 64.8 35 - 80 rbc 3.62 3.5 - 5.5 hgb 10.0 11.5 - 16.5 hct 30.2 35 - 55 mcv 83.5 75 - 100 mch 27.6 25 - 35 mchc 33.1 31 - 38 platlet 351 100 - 400 P-Vitamin B12 Reviewed date:10/02/2024 08:36:56 AM Interpretation: Performing Lab: Notes/Report: Test performed by [facility] [address] [place] [address] , [address], [place] [address] Vin West MD, Management Accountant CLIA: [id number] Vitamin B12 784 266-1254 pg/mL P-Comprehensive Metabolic Pa ethan (CMP) Reviewed date:10/02/2024 08:36:56 AM Interpretation: Performing Lab: Notes/Report: Test performed by [facility] [address] [place] [address] , [address], [place] [address] Vin West MD, Management Accountant CLIA: [id number] Sodium 133 135-145 mmol/L Potassium 4.4 3.5-5.3 mmol/L Chloride 98 97-108 mmol/L CO2 24 22-32 mmol/L Glucose 100 65-99 mg/dL BUN 10 8-23 mg/dL Creatinine 0.62 0.50-1.00 mg/dL Calcium 9.3 8.6-10.4 mg/dL eGFR by Creatinine 89 >59 mL/min/1.73m2 Protein 8.0 6.0-8.3 g/dL Albumin 4.4 3.5-5.3 g/dL Alkaline Phosphatase 190 35-121 IU/L ALT (SGPT) 9 <5-47 IU/L AST (SGOT) 19 <5-40 IU/L Bilirubin, Total <0.2 <0.2-1.2 mg/dL A/G Ratio 1.2 1.1-2.5 P-TSH Reviewed date:10/02/2024 08:36:56 AM Interpretation: Performing Lab: Notes/Report: Test performed by [facility] [address] [place] [address] , [address], [place] [address] Vin West MD, Management Accountant CLIA: [id number] TSH 0.49 0.43-5.25 mU/L P-Vitamin D 25-Hydroxy Reviewed date:10/02/2024 08:36:56 AM Interpretation: Performing Lab: Notes/Report: Test performed by [facility] [address] [place] [address] , [address], [place] [id number] Vin West MD, Management Accountant CLIA: [id number] Vitamin D 25-Hydroxy 26.6 30.0-100.0 ng/mL Interpretation of Vitamin D 25 OH: < 20 ng/mL - Deficiency 20 - 29 ng/mL - Insufficiency 30 - 100 ng/mL - Sufficiency > 100 ng/mL - Super-therapeutic- toxicity may occur above this level. Clinical correlation required. REASON FOR VISIT checkup and AWV Medications Medication SIG (Take, Route, Frequency, Duration) Notes Start Date End Date Status Milk Thistle 175MG Q DAY ORAL *Please revie w and pick correct strength-formulat ion from [employer] options. If intended option is not shown, discontinue and re-order from Quick Search* Not-Taking Vitamin A & D DIRECTED *Please review and pick correct strength-formulat ion from [employer] options. If intended option is not shown, discontinue and re-order from Quick Search* Not-Taking Macrobid 100 MG 1 cap(s) Orally every 12 hrs; Duration: 7 days 02/10/2023 Not-Taking Phenytoin Sodium Extended 100 MG Take 1 capsule by mouth once daily at bedtime; Duration: 30 days patient must have appt prior to further refills. Active Levothyroxine Sodium 50 MCG 1 tab(s) Orally Once a day; Duration: 90 days Active PHENobarbital 15 MG 2 tab(s) Orally once a day, bedtime; Duration: 90 days 09/27/2024 Active Calcium-Vitamin D-Minerals 600-800 MG-UNIT 1 tab(s) orally 2 times a day Active Dilantin 100 MG Take 1 capsule by mouth at bedtime Active Aspirin 81 MG 1 tab(s) orally once a day Active Synthroid 50 MCG Take 1 tablet by mouth once daily Active Triamcinolone Acetonide 0.1 % 1 moe applied topically 3 times a day; Duration: 7 day(s) 09/17/2022 Not-Taking Dilantin Infatabs 50 MG CHEW AND SWALLOW 1/2 TABLET BY MOUTH AT BEDTIME NEEDED; Duration: 90 Not-Taking Fosamax 70 MG 1 TAB once a week; Duration: 28 DAYS 10/23/2021 Not-Taking Bisoprolol Fumarate 5 MG 1 tab(s) orally once a day Active Problems Problem Type SNOMED Code ICD Code Onset Dates Problem Status W/U Status Risk Notes Problem Neuropathy (290511070) Neuropathy (G62.9) Active confirmed Vital Signs Weight 111.0 lbs 09/27/2024 Blood pressure systolic 100 mm Hg 09/28/19 25 Blood pressure diastolic 60 mm Hg 025 Heart Rate 81 /min 09/27/2024 Height 62.50 in 09/27/2024 BMI 19.98 kg/m2 09/27/2024 Encounters Encounter Location Date Provider Diagnosis [facility] [address] [place] [id number] 09/27/2024 Raulito Schumacher Adult general medica l examination Z00.00 ; Seizure disorder G40.909 ; Acquired hypothyroidism E03.9 ; Paroxysmal SVT (supraventricular tachycardia) I47.10 ; Osteoporosis M81.0 ; Neuropathy G62.9 and Body mass index (BMI) of 19.0 to 19.9 in adult Z68.1 Assessments Encounter Date Diagnosis (ICD Code) Assessment Notes Treatment Notes Treatment Clinical Notes Section Notes 09/27/2024 Adult general medical examination (ICD-10 - Z00.00) Patient instructed to return to office Annually for Annual Wellness Visits to include annual screenings of Pain assessment, Functional Ability assessment, Cognitive Ability assessment, Fall Risk assessment, Depression screening and Bladder control screening. 09/27/2024 Seizure disorder (ICD-10 - G40.909) 09/27/2024 Acquired hypothyroidism (ICD-10 - E03.9) 09/27/2024 Paroxysmal SVT (supraventricular tachycardia) (ICD-10 - I47.10) 09/27/2024 Osteoporosis (ICD-10 - M81.0) 09/27/2024 Neuropathy (ICD-10 - G62.9) 09/27/2024 Body mass index (BMI) of 19.0 to 19.9 in adult (ICD-10 - Z68.1) Plan Of Treatment Medication Medication Name Sig Start Date Stop Date Notes PHENobarbital 15 MG 2 tab(s) Orally once a day, bedtime; Duration: 90 days 09/27/2024 Dilantin 100 MG Take 1 capsule by mo uth at bedtime Synthroid 50 MCG Take 1 tablet by mouth once daily Bisoprolol Fumarate 5 MG 1 tab(s) orally once a day Treatment Notes Assessment Notes Adult general medical examination Patien t instructed to return to office Annually for Annual Wellness Visits to include annual screenings of Pain assessment, Functional Ability assessment, Cognitive Ability assessment, Fall Risk assessment, Depression screening and Bladder control screening. Next Appt Details Follow Up: 6 Months, Reason: Progress Notes * BECCA BERNARDOOB:1945 (80 yo F)Acc No.[id number]:09/27/2024 Annual Wellness Visit Patient: TOREY MYERS Provider: Raulito Schumacher M.D. :1945 A ge:79 Y S ex:Female Date:09/27/2024 Address:[address] [place], [place] [address] [address] [place], [id number] Subjective: * Chief Complaints: * 1 . checkup and AWV. * HPI: H PI: Patient is here today for a scheduled check up, a Medicare Annual Wellness Visit. W rist/Hand: c/o pain S he complains of pain in the MP and PIP joint of the right index finger with some morning stiffness. No injury.. L eg: c/o Leg edema P t sts her legs are very numb and sts that at night it is hard for to fall asleep or stay asleep due to it. Pt sts she is not able to keep her balance and sts that she wobbles when shes walking . N eurology: Denies seizures. G astroenterology: Appetite has improved and she has gained some weight. * ROS: O PTHALMOLOGY: Negative for d enies vision issues. * Medical History: H ypothyroid , Controlled [...] * Hospitalization/Major Diagno stic Procedure: D iarrhea- [place] 1968, Heart Flutters 02/21/2015, Chest Pain- [facility] . * Family History: F [...] tab(s) orally once a day , Taking Synthroid 50 MCG Tablet Take 1 tablet by mouth once daily , Taking Dilantin 100 MG Capsule Take 1 capsule by mouth at bedtime , Taking PHENobarbital 15 MG Tablet 2 tab(s) orally once a day, bedtime , Taking Levothyroxine Sodium 50 MCG Tablet 1 tab(s) Orally Once a day , Taking Phenytoin Sodium Extended 100 MG Capsule Take 1 capsule by mouth once daily at bedtime , Notes to Pharmacist: patient must have appt prior to further refills., Not-Taking Macrobid 100 MG Capsule 1 cap(s) Orally every 12 hrs , Not-Taking Vitamin A & D DIRECTED , Notes to Pharmacist: *Please review and pick correct strength-formulation from [employer] options. If intended option is not shown, discontinue and re-order from Quick Search*, Not-Taking Milk Thistle 175MG Q DAY ORAL , Notes to Pharmacist: *Please review and pick correct strength-formulation from [employer] options. If intended option is not shown, discontinue and re-order from Quick Search*, Not-Taking Fosamax 70 MG Tablet 1 TAB once a week , Not-Taking Dilantin Infatabs 50 MG Tablet Chewable CHEW AND SWALLOW 1/2 TABLET BY MOUTH AT BEDTIME NEEDED , Not-Taking Triamcinolone Acetonide 0.1 % Cream 1 moe applied topically 3 times a day , Medication List reviewed and reconciled with the patient * Allergies: B utorphanol Tartrate: unable to urinate, tongue swollen, vision issues, IOPAN: unable to urinate, vision problems. Objective: * Vitals: W t: 111.0, Temp: 97.9, BP: 100/60, HR: 81, Nurse: leann, Ht: 62.50, BMI:19.98. * Examination: G eneral Examination: General Appearance: N AD. Affect good. Weight gain noted. N manan: s upple, no lymphadenopathy. H eart: R SR. L ungs: c lear to auscultation. E xtremities: T race edema of the left ankle. There is mild swelling of the second MP joint of the right hand and the PIP joint of the index finger with stiffness. No acute redness or warmth. * Physical Examination: G ENERAL: Pain Assessment: P ain level: - , on a scale of 0-10 (with 10 being extreme pain). F unctional Status Assessment: P atient response to question of how often physical health interferes with daily activities: Frequently. Able to perform ADLs-including meal preparation, grocery shopping, housework, laundry, taking medications or handling finances. Cognitive Status: alert and oriented. Ambulation Status: Fully ambulatory. F all Risk Assessment: I ndependant in ambulation, adequate lighting in home. Patient has NOT fallen or had trouble walking within the past 12 months. D epression Screening: D enies depressed mood or anxiety. Describes emotional health as: ?. B ladder Control Screening: D cohng problems.? Assessment: * Assessment: 1. A dult general medical examination - Z00.00 (Primary) 2 . S eizure disorder - G40.909 3 . A cquired hypothyroidism - E03.9 4 . P aroxysmal SVT (supraventricular tachycardia) - I47.10 5 . O steoporosis - M81.0 6. N europathy - G62.9 7 . B azucena mass index (BMI) of 19.0 to 19.9 in adult - Z68.1 Plan: * Treatment: 2. S eizure disorder Continue Dilantin Capsule, 100 MG, Take 1 capsule by mouth at bedtime; R efill PHENobarbital Tablet, 15 MG, 2 tab(s), Orally, once a day, bedtime, 90 days, 180, Refills 1. L AB: CBC Venipuncture (in house) (Collection Date & Time - 09/27/2024) Value Reference Range w bc 7.4 3.5 - 10 * l ymph 28.8 15 - 50 * m id 6.4 2 - 15 * g ran 64.8 35 - 80 * r bc 3.62 3.5 - 5.5 * h gb 10.0 11.5 - 16.5 * h ct 30.2 35 - 55 * m cv 83.5 75 - 100 * m ch 27.6 25 - 35 * m chc 33.1 31 - 38 * p latlet 351 100 - 400 * Debbie Rosa 09/27/2024 04:15 :17 PM EDT > Raulito Schumacher 10/02/2024 08:36:45 AM EDT > See phone encounter 3.?Acquired hypothyroidism? Continue Synthroid Tablet, 50 MCG, Take 1 tablet by mouth once daily.?LAB: P-TSH (Collection Date & Time - 09/27/2024 02:44 PM)* Value Reference Range T SH 0.49 0.43-5.25 - mU/L * Raulito Schumacher 10/02/2024 08:36:45 AM EDT > See phone encounter 4.?Paroxysmal SVT (supraventricular tachycardia)? Continue Bisoprolol Fumarate Tablet, 5 MG, 1 tab(s), orally, once a day.?? 5.?Neuropathy?LAB: P-Vitamin B12 (Collection Date & Time - 09/27/2024 02:44 PM)* Value Reference Range V itamin B12 653 448-8599 - pg/mL * Raulito Schumacher 10/02/2024 08:36:45 AM EDT > See phone encounter ?LAB: P-Comprehensive Metabolic Panel (CMP) (Collection Date & Time - 09/27/2024 02:44 PM)* Value Reference Range A /G Ratio 1.2 1.1-2.5 - * A lbumin 4.4 3.5-5.3 - g/dL * A lkaline Phosphatase 190 H 35-121 - IU/L * A LT (SGPT) 9 <5-47 - IU/L * A ST (SGOT) 19 <5-40 - IU/L * B ilirubin, Total <0.2 <0.2-1.2 - mg/dL * B UN 10 8-23 - mg/dL * C alcium 9.3 8.6-10.4 - mg/dL * C hloride 98 97-108 - mmol/L * C O2 24 22-32 - mmol/L * C reatinine 0.62 0.50-1.00 - mg/dL * G lucose 100 H 65-99 - mg/dL * P otassium 4.4 3.5-5.3 - mmol/L * S odium 133 L 135-145 - mmol/L * P rotein 8.0 6.0-8.3 - g/dL * e GFR by Creatinine 89 >59 - mL/min/1.73m2 * Raulito Schumacher 10/02/2024 08:36:45 AM EDT > See phone encounter ?LAB: P-Vitamin D 25-Hydroxy (Collection Date & Time - 09/27/2024 02:44 PM) * Value Reference Range V itamin D 25-Hydroxy 26.6 L 30.0-100.0 - ng/mL * Raulito Schumacher 10/02/2024 08:36:45 AM EDT > See phone encounter * Procedure Codes: G 0439 ANNUAL WELLNESS VST; PPS SUBSQT VST, G2211 Complex e/m visit add on, 1090F PRES/ABSN URINE INCON ASSESS, 3288F FALL RISK ASSESSMENT DOCD, 1170F FXNL STATUS ASSESSED, 1159F MED LIST DOCD IN RCRD, 1003F LEVEL OF ACTIVITY ASSESS, 1036F TOBACCO NON-USER, 66776 CBC WITH AUTO DIFF, G8783 BP SCR PRFRM RCMDD DEFIND SCR INTVL, G8752 MOST RECENT SYSTOLIC BP < 140MM HG, G8754 MOST RECENT DIASTOLIC BP < 90MM HG, G8420 BMI<30 AND >=22 CALC & DOCU * Preventive Medicine: Counseling: E motional health: P atient encouraged to try connecting with family or friends to boost mood. B ladder control: M ethods of controlling or managing leakage of urine discussed. E xercise: P atient advised to start, increase or maintain level of exercise/physical activity. I njury prevention: F all prevention discussed. Discussed need for cane/walker. Potential trip hazards discussed. Immunizations: P neumococcal r ecommended. I nfluenza u p to date, recommended seasonally. Screening / Special Tests: M ammogram R ecent history: 10/13/2021, negative.?Colonoscopy R ecent history:, excluded due to age. B one mineral Density R ecent history: 10/13/2021, osteoporosis, recommended. * Follow Up: 6 Months * Images: Billing Information: * Visit Code: 93079 Office Visit, Est Pt., Level 3. Modifiers: 25 * Procedure Codes: G0439 ANNUAL WELLNESS VST; PPS SUBSQT VST. G2211 Complex e/m visit add on. 1090F PRES/ABSN URINE INCON ASSESS. 3288F FALL RISK ASSESSMENT DOCD. 1170F FXNL STATUS ASSESSED. 1159F MED LIST DOCD IN RCRD. 1003F LEVEL OF ACTIVITY ASSESS. 1036F TOBACCO NON-USER. 06538 CBC WITH AUTO DIFF. G8783 BP SCR PRFRM RCMDD DEFIND SCR INTVL. G8752 MOST RECENT SYSTOLIC BP < 140MM HG. G8754 MOST RECENT DIASTOLIC BP < 90MM HG. G8420 BMI<30 AND >=22 CALC & DOCU. * Electronic signature of Raulito Schumacher MD on 03/27/2025 at 01:17 PM EST Sign off status: Pending * Provider: Raulito Schumacher M.D. Date: 0 09/27/2024 Generated for Latashai maine/Ade/eTransmitting on: 1 05/28/2024 01:17 PM EST History and Physical Notes * HPI (History of Present Illness) Category Sub-Category Detail Notes Category Not es Wrist/Hand pain She complains of pain in the MP and PIP joint of the right index finger with some morning stiffness. No injury. HPI Patient is here today for a sche duled check up, a Medicare Annual Wellness Visit Leg Leg edema Pt sts her legs are very numb and sts that at night it is hard for to fall asleep or stay asleep due to it. Pt sts she is not able to keep her balance and sts that she wobbles when shes walking Physical Examination Category Sub-Category Detail Notes Section Note s GENERAL Pain Assessment: Pain level: - , on a scale of 0-10 (with 10 being extreme pain) Functional Status Assessment: Patient re sponse to question of how often physical health interferes with daily activities: Frequently. Able to perform ADLs-including meal preparation, grocery shopping, housework, laundry, taking medications or handling finances.Cognitive Status: alert and oriented.Ambulation Status: Fully ambulatory Fall Risk Assessment: Independant in amb ulation, adequate lighting in home. Patient has NOT fallen or had trouble walking within the past 12 months Depression Screening: Denies depressed m ood or anxiety. Describes emotional health as: ? Bladder Control Screening: Denies proble ms Examination Category Sub-Category Detail Notes Category Not es General Examination Heart: RSR Lungs: clear to auscultatio n Extremities: Trace edema of the l eft ankle. There is mild swelling of the second MP joint of the right hand and the PIP joint of the index finger with stiffness. No acute redness or warmth General Appearance: NAD. Affect good. We ight gain noted Neck: supple, no lymphaden opathy
--- OUTSIDE RECORDS SUMMARY | 2025-03-27 13:17 | XMS_ITS | Patient Health Record ---
Author Organization [facility] Address [address] [place] [id number] Care Team Providers Care Unmanned Equipment Operator Name Role Phone Raulito Schumacher Primary Care [...] Interpretation: Performing Lab: Notes/Report: Test performed by [facility] , [address], [place] [address] Vin West MD, Patient Case Coordinator CLIA: [id number] Vitamin B12 250 374-8826 pg/mL P-Comprehensive Metabolic Pa ethan (CMP) Reviewed date:10/02/2024 08:36:56 AM Interpretation: Performing Lab: Notes/Report: Test performed by [facility] [address] [place] [address] , [place] [address] Vin West MD, Patient Case Coordinator CLIA: [id number] Sodium 133 135-145 mmol/L Potassium 4.4 3.5-5.3 [...] Interpretation: Performing Lab: Notes/Report: Test performed by [facility] [address] [place] [address] , [place] [address] Vin West MD, Patient Case Coordinator CLIA: [id number] TSH 0.49 0.43-5.25 mU/L P-Vitamin D 25-Hydroxy Reviewed date:10/02/2024 08:36:56 AM Interpretation: Performing Lab: Notes/Report: Test performed by [facility] [address] [place] [address] , [place] [address] Vin West MD, Patient Case Coordinator CLIA: [id number] Vitamin D 25-Hydroxy 26.6 30.0-100.0 ng/mL Interpretation of Vitamin D 25 [place]: < 20 ng/mL - Deficiency 20 - 29 ng/mL - Insufficiency 30 - 100 ng/mL - Sufficiency > 100 ng/mL - Super-therapeutic- toxicity may occur above this level. Clinical correlation required. Bone density Reviewed date:10/23/2024 08:27:31 AM Interpretation:osteoporosis Performing Lab: Notes/Report: osteoporosis Reason For Referral No Information Medications Medication SIG (Take, Route, Frequency, Duration) Notes Start Date End Date Status Fosamax 70 MG 1 TAB Orally once a week; Duration: 90 days 10/23/2021 Active PHENobarbital 15 MG 2 tab(s) Orally once a day, bedtime; Duration: 90 days 09/27/2024 Active Phenytoin Sodium Extended 100 MG Take 1 capsule by mouth once daily at bedtime; Duration: 30 Active Triamcinolone Acetonide 0.1 % 1 moe applied topically 3 times a day; Duration: 7 day(s) 09/17/2022 Not-Taking Levothyroxine Sodium 50 MCG Take 1 tablet by mouth once daily; Duration: 90 Active Calcium-Vitamin D-Minerals 600-800 MG-UNIT 1 tab(s) [...] w and pick correct strength-formulat ion from [employer] options. If intended option is not shown, discontinue and re-order from Quick Search* Not-Taking Synthroid 50 MCG Take 1 tablet by mouth once daily Active Vitamin A & D DIRECTED *Please review and pick correct strength-formulat ion from [employer] options. If intended option is not shown, discontinue and re-order from Quick Search* Not-Taking Bisoprolol Fumarate 5 MG 1 tab(s) orally once a day Active Macrobid 100 MG 1 cap(s) Orally every 12 hrs; Duration: 7 days 02/10/2023 Not-Taking Immunizations Vaccine Route Administration Date Status Comme nts Prevnar (PCV20) IM Intramuscular 06/14/2023 Administered Fluzone High Dose (65yr and older) Unknown 02/27/2015 Administered Fluzone High Dose (65yr and older) IM Intramuscular 03/04/2017 Administered Fluzone High Dose (65yr and older) Unknown 02/13/2018 Administered Fluzone High Dose (65yr and older) Unknown 05/09/2019 Administered Fluzone High Dose (65yr and older) Unknown 03/24/2020 Administered Fluzone High Dose (65yr and older) IM Intramuscular 03/20/2024 Administered DT, 7 YEARS OR OLDER Unknown 02/09/2006 Administered COVID 19 Moderna Unknown 07/09/2020 Administered COVID 19 Moderna Unknown 08/06/2020 Administered COVID 19 Moderna Unknown 04/02/2021 Administered Problems Problem Type SNOMED Code ICD Code Onset Dates Problem Status W/U Status Risk Notes Problem Constipation (57591940) Constipation (K59.00) Active confirmed Problem Dry eyes (462704764) Dry eyes (H04.129) Active confirmed Problem Seizure disorder (338292531) Seizure disorder (G40.909) Active confirmed Problem Acquired hypothyroidism (259934869) Acquired hypothyroidism (E03.9) Active confirmed Problem Neuropathy (211326104) Neuropathy (G62.9) Active confirmed Problem Osteoporosis (96010668) Osteoporosis (M81.0) Active confirmed Problem Nonsustained paroxysmal supraventricular tachycardia (0804177509229) Supraventricular tachycardia, nonsustained (I47.9) Active confirmed Problem Diverticular disease of colon (703520289) Diverticulosis of large intestine without hemorrhage (K57.30) Active confirmed Problem Osteoarthritis of knee (640199306) Primary osteoarthritis of left knee (M17.12) Active confirmed Problem Diverticular disease of colon (529968488) Diverticulosis (K57.90) Active confirmed Problem Hematuria syndrome (86532511) Hematuria of unknown cause (R31.9) Active confirmed Problem Hemosiderosis (90918067) 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 confirmed Problem Paroxysmal supraventricular tachycardia (disorder) (98717990) Paroxysmal SVT (supraventricular tachycardia) (I47.10) Active confirmed Vital Signs Heart Rate 81 /min 09/27/2024 Blood pressure diastolic 60 mm Hg 09/27/2024 Height 62.50 in 09/27/2024 Blood pressure systolic 100 mm Hg 09/27/2024 Weight 111.0 lbs 09/27/2024 BMI 19.98 kg/m2 09/27/2024 Encounters Encounter Location Date Provider Diagnosis [facility] [address] [facility] [address] [place] [id number] 09/27/2024 R Rodriguez Schumacher Adult general medica l examination Z00.00 ; Seizure disorder G40.909 ; Acquired hypothyroidism E03.9 ; Paroxysmal SVT (supraventricular tachycardia) I47.10 ; Osteoporosis M81.0 ; Neuropathy G62.9 and Body mass index (BMI) of 19.0 to 19.9 in adult Z68.1 [facility] [address] [facility] [address] [facility] [address] [place], [place] [id number] 03/27/2024 R Rodriguez Endy [facility] [address] [facility] 36 [facility] [address] [place], [place] [id number] 06/25/2024 R Rodriguez Endy Seizure disorder G40 .909 [facility] [address] [facility] 36 [facility] [address] [place], [place] [id number] 09/05/2024 R Rodriguez Endy [facility] [address] [facility] 36 [facility] [address] [place], [place] [id number] 09/29/2024 R Rodriguez Endy Screening for osteoporosis Z13.820 [facility] [address] [facility] 36 [facility] [address] [place], [place] [id number] 10/02/2024 R Rodriguez Endy [facility] [address] [place], [place] [id number] 10/23/2024 R Rodriguez Endy Assessments Encounter Date Diagnosis (ICD Code) Assessment Notes Treatment Notes Treatment Clinical Notes Section Notes 06/25/2024 Seizure disorder (ICD-10 - G40.909) 09/27/2024 Seizure disorder (ICD-10 - G40.909) 09/27/2024 Adult general medical examination (ICD-10 - Z00.00) Patient instructed to return to office Annually for Annual Wellness Visits to include annual screenings of Pain assessment, Functional Ability assessment, Cognitive Ability assessment, Fall Risk assessment, Depression screening and Bladder control screening. 09/29/2024 Screening for osteoporosis (ICD-10 - Z13.820) 09/27/2024 Acquired hypothyroidism (ICD-10 - E03.9) 09/27/2024 Paroxysmal SVT (supraventricular tachycardia) (ICD-10 - I47.10) 09/27/2024 Osteoporosis (ICD-10 - M81.0) 09/27/2024 Neuropathy (ICD-10 - G62.9) 09/27/2024 Body mass index (BMI) of 19.0 to 19.9 in adult (ICD-10 - Z68.1) Plan Of Treatment No Information Insurance Providers Payer Name Payer Address Payer Phone Subscriber Number Group Number Insured Name Patient Relationship to Insured Coverage Start Date Coverage End Date MEDICARE PART B [address] [address] [place] [address] [id number] TOREY BERNARDO Self - patient is the insured [facility] MEDICARE SUPPLEMENT [address] [address] [place], [place] [id number] [phone] [id number] TOREY BERNARDO Self - patient is the [...] 5 Hospitalization History Reason Date(Month/Year) Chest Pain- [facility] ER Heart Flutters 02/21/2015 Diarrhea- [facility]
--- OUTSIDE RECORDS SUMMARY | 2025-03-27 13:18 | XMS_ITS | Clinical Summary ---
Author Organization [facility] Address [facility] [place] [address] Care Team Providers Care Bowling Ball Grader And Marker Name Role Phone Unavailable Primary Care Provider [...] therelease of HIV test results or diagnoses. [id number] Social History Tobacco Use Types Packs/Day Years Used Date Smoking Tobacco: Never Assessed Comments Unknown Sex and Gender Information Value Date Recorded Sex Assigned at Not on file Legal Sex Female 11:11 PM EST Gender Identity Not on file Sexual Orientation Not on file Plan of Treatment Not on file
--- NOTE | 2025-03-27 13:45 | CA_ITS ---
APPROVED REPORT EXAM: Comprehensive 2D, Doppler, and color-flow Echocardiogram Adon: DENNIS Marcus, RVS Ht: 5 ft 2 in Wt: 108lbs BSA: 1.47 BP: 122/67 mmHg Indications: Afib, SPB, Fatigue 2D Dimensions Left Atrium 3.67 cm F: 2.7 - 3.8 LA Volume 36.00 mL LA Volume Index 24.117196 mL/m2 (M/F) 16-34 M-Mode Dimensions RVDd 2.32 cm (0.9-2.6) LA Diam 4.07 cm (1.9-4.0) LVDd 4.60 cm (3.5-5.7) LVDs 2.89 cm (3.5-5.7) IVSd 0.75 cm (0.6-1.1) PWd 0.82 cm (0.6-1.1) EF (Teich) 67.20% EPSs 0.41 cm FS 37.20% EDV (Teich) 97.30 mL TAPSE 1.82 (<1.7) ESV (Teich) 31.90 mL LV Diastology E Decel Time 213 (160-240 msec) E/A Ratio 2.02 MED A' 7.30 cm/s LAT A' 3.80 cm/s Aortic Valve ABHISHEK Index 1.31 cm2/m2 AoV Peak Som. 120.0 (50-130 cm/s) AO Peak GR. 5.80 mmHg AO Mean GR. 2.90 (<5 mmHg) AO VTI 27.3 (18-25 cm) ABHISHEK (VTI) 1.98 (2.5-4.5 cm2) Mitral Valve MV A Velocity 44.0 (40-130 cm/s) E/A Ratio 2.02 MV Mean Gr. 1.40 (<2mmHg) MV PHT 67.0 ms Pulmonary Valve PV Peak Velocity 73.0 (50-150 cm/s) Tricuspid Valve TR P. Velocity 197.00 cm/s Left Ventricle The left ventricle is normal size. Left ventricular systolic function is normal. The left ventricular ejection fraction is within the normal range. There is increased left ventricular wall thickness. There is normal LV segmental wall motion. Transmitral Doppler flow pattern suggests impaired LV relaxation. LVEF is 55% Right Ventricle The right ventricle is normal size. The right ventricular systolic function is normal. Atria Left atrium is mildly dilated. Right atrium is mildly dilated. There is no color Doppler evidence of interatrial shunt. Aortic Valve The aortic valve is mildly thickened. There is no hemodynamically significant aortic valvular stenosis. Trace aortic regurgitation is present. Mitral Valve The mitral valve is normal in structure. No evidence of mitral valve stenosis. Mild mitral regurgitation is present. Tricuspid Valve The tricuspid valve leaflets are thin and pliable. Mild tricuspid regurgitation. RVSP is 20-25 mmHg. Pulmonic Valve The pulmonary valve is grossly normal in structure. Trace pulmonic valve regurgitation is present. Great Vessels The aortic root is normal in size. IVC is normal in size and collapses >50% with inspiration. Pericardium There is a small-sized, anterior pericardial effusion present. The largest pocket measures 0.4 cm in diastole. No echo indications of tamponade. Other Information Study Quality: Fair Conclusion Normal biventricular systolic function. Mild biatrial dilation. Mild MR, mild TR. There is a small-sized, anterior pericardial effusion present. The largest pocket measures 0.4 cm in diastole. No echo indications of tamponade. Electronically signed by : Pauline Correia MD 04/04/2025 01:33:04
== END 2025-03-27 23:59 | disposition home or self-care (01) ==
LOC: RT 13:15
PROVIDERS: PCP Family Medicine; Visit Provider Physician Assistant
DX: I08.1 Rheumatic disorders of both mitral and tricuspid valves (principal); I31.39 Other pericardial effusion (noninflammatory); I47.10 Supraventricular tachycardia, unspecified; I48.0 Paroxysmal atrial fibrillation; E78.5 Hyperlipidemia, unspecified; I49.1 Atrial premature depolarization
CPT/HCPCS: 93306